=== PATIENT | male | born 1950 | race Caucasian/White ===

== ENCOUNTER 2017-01-01 07:07 | Emergency (ER) | payer MEDICARE, OTHER ==
[~2017-01-01] VITALS: Ht 160 cm; Wt 78.9 kg
[~2017-01-01 07:07] MED LIST: ASPI81TA3 PO; ATOR40TA68 PO; BISA5TAB6 PO; CARV6.2579 PO; FAMO20TA18 PO; HYDR-3498 PO; HYDR-902 PO; LANT3I SC; LEVO500T72 PO; LISI-313 PO; NOVO3I SC; RTPRO5 HHN; ZOLP5TAB PO
[2017-01-01 07:09] VITALS: Ht 160 cm; Wt 78.9 kg
--- NOTE | 2017-01-01 08:29 | RADRPT ---
PROCEDURE: XR Chest. CLINICAL INDICATION: Cough TECHNIQUE: PA and lateral views of the chest were obtained. COMPARISON: 07/23/2016 FINDINGS: Post CABG changes redemonstrated with sternotomy wires and mediastinal clips. There are atherosclero tic calcifications of the thoracic aorta. There is a small to moderate left pleural effusion with l eft basilar atelectasis, which has decreased. The right lung appears clear. No pleural effusion or pneumothorax is identified. The visualized osseous structures are intact. IMPRESSION: Small to moderate left pleural effusion with left basilar atelectasis, decreased since the prior exa m. RPTAT: VV .Gian Austin MD, MD Date Time Electronically viewed and signed by .Gian Austin MD, MD on 01/01/2017 08:29 .O/
[2017-01-01] MEDS ORDERED: BENZ100C70 PO (08:57)
[2017-01-01] MEDS ORDERED: PROM12.510 PO (08:59)
--- NOTE | 2017-01-01 09:06 | ERD ---
ER Documentation Chief Complaint Date/Time DATE: 01/01/17 TIME: 09:05 Chief Complaint cough x 1 week HPI This is a 66-year-old male with a history of diabetes type II on insulin, hypertension, hyperlipidemia, and STEMI in July 2016, pleural effusions presenting to the emergency department complaining of cough and sore throat for the past 2 weeks. Patient rates the sore throat mild in severity. Patient denies any fever, ear pain, chest pain or shortness of breath. Patient states that he has not tried any medications for this. ROS All systems reviewed and are negative except as per history of present illness. Medications Home Meds Active Scripts Famotidine* (Pepcid*) 20 Mg Tablet, 20 MG PO DAILY, #20 TAB Prov:WHIT ESPINOSA PA-C 01/01/17 Loratadine* (Claritin*) 10 Mg Tablet, 10 MG PO DAILY, #20 TAB Prov:WHIT ESPINOSA PA-C 01/01/17 Benzonatate* (Tessalon Perle*) 100 Mg Capsule, 100 MG PO Q8H Y for COUGH, #30 CAP Prov:WHIT ESPINOSA PA-C 01/01/17 Zolpidem Tartrate (Ambien José Miguel) 5 Mg Tablet, 5 MG PO QHS Y for INSOMNIA for 7 Days, TAB Prov:MARCIO CRAIG NP 07/24/16 Insulin Glargine* (Lantus*) 100 Unit/Ml Soln, 30 UNIT SC QHS for 30 Days Prov:MARCIO CRAIG NP 07/24/16 Insulin Aspart* (Novolog Insulin Pen*) 100 Unit/Ml Soln, 9 UNIT SC WITH MEALS for 30 Days Prov:MARCIO CRAIG NP 07/24/16 Insulin Aspart* (Novolog Insulin Pen*) 100 Unit/Ml Soln, 0 UNIT SC WITH MEALS BEDTIME for 30 Days Prov:MARCIO CRAIG NP 07/24/16 Hydrocodone Bit-Acetaminophen (Hydrocodone Bit-APAP) 5-325MG Tablet, 1 TAB PO Q6H Y for PAIN LEVEL 4-6 for 7 Days, TAB Prov:MARCIO CRAIG NP 07/24/16 Famotidine* (Famotidine*) 20 Mg Tablet, 20 MG PO Q12 for 7 Days, TAB Prov:MARCIO CRAIG NP 07/24/16 Bisacodyl* (Bisacodyl*) 5 Mg Tablet.dr, 5 MG PO DAILY Y for CONSTIPATION for 7 Days Prov:MARCIO CRAIG NP 07/24/16 Albuterol Sulfate (Albuterol Sulfate) 2.5 Mg/0.5 Ml Vial.neb, 2.5 MG HHN Q4H RESP THERAPY Y for SHORTNESS OF BREATH for 7 Days Prov:MARCIO CRAIG NP 07/24/16 Albuterol Sulfate (Albuterol Sulfate) 2.5 Mg/0.5 Ml Vial.neb, 2.5 MG HHN Q6HWA RESP THERAPY for 7 Days Prov:MARCIO CRAIG NP 07/24/16 Hydrocodone/Acetaminophen ([place] 10-325 Tablet) 1 Each Tablet, 1 EACH PO Q6H for PAIN, #30 TAB Prov:MARCIO CRAIG NP 07/23/16 Levofloxacin* (Levaquin*) 500 Mg Tablet, 500 MG PO DAILY for 7 Days, TAB Prov:MARCIO CRAIG NP 07/23/16 Lisinopril* (Lisinopril*) 5 Mg Tablet, 5 MG PO DAILY for 30 Days, TAB Prov:MARCIO CRAIG NP 07/23/16 Atorvastatin* (Atorvastatin*) 40 Mg Tablet, 40 MG PO HS for 30 Days, TAB Prov:MARCIO CRAIG NP 07/23/16 Aspirin (Aspirin) 81 Mg Chew, 81 MG PO DAILY for 30 Days, TAB Prov:MARCIO CRAIG NP 07/23/16 Carvedilol* (Carvedilol*) 6.25 Mg Tablet, 6.25 MG PO BID, #60 TAB 1 Refill Prov:RAJWINDER CHEW 03/13/16 Allergies Allergies: Coded Allergies: No Known Allergy (Unverified , 01/01/17) PMhx/Soc History of Surgery: Yes (heart surgery) Anesthesia Reaction: No Hx Neurological Disorder: No Hx Respiratory Disorders: Yes (chf, copd) Hx Cardiac Disorders: Yes ([place]) Hx Psychiatric Problems: No Hx Miscellaneous Medical Probl: Yes (see notes) Hx Alcohol Use: No (stopped 2 weekls ago) Hx Substance Use: No Hx Tobacco Use: Yes (stopped 2 weeks ago) Smoking Status: Never smoker Physical Exam Vitals Vital Signs Date Time Temp Pulse Resp B/P Pulse Ox O2 Delivery O2 Flow Rate FiO2 01/01/17 07:09 98.1 97 18 170/90 99 Physical Exam GENERAL: well-developed/well-nourished, in no apparent distress, non-toxic appearing HEAD: NC/AT, no swelling noted in frontal or maxillary areas EARS: bilateral tympanic membrane is intact without erythema or effusion NARES:congested THROAT: oropharynx erythematous without exudates, no tonsil enlargement, post nasal drip EYES: Conjunctiva normal NECK: Supple, no lymphadenopathy PULM: Decreased breath sounds in left upper lobe CV: Normal S1S2, RRR, good capillary refill GI: Soft, non-distended, normal bowel sounds, non-tender BACK: No midline tenderness, no masses EXT No clubbing, cyanosis, or edema NEURO: Alert and Orientated SKIN: Intact, normal turgor PSYCH: Normal mood and mentation Procedures/MDM This is a 66-year-old male with a history of diabetes type II on insulin, hypertension, hyperlipidemia, and STEMI in July 2016, pleural effusions presenting to the emergency department complaining of cough and sore throat for the past 2 weeks. This is likely due to pleural effusion vs viral upper respiratory infection vs post-nasal drip vs GERD. Other differentials I have considered pneumonia, pneumothorax, pulmonary embolism, CHF vs other acute cardiopulmonary conditions. On examination, patient appears well he is not tachycardic, his pulse ox is within normal limits and he appears well with no respiratory distress. Patient was recently hospitalized for an STEMI in July 2016 and was found to have pleural effusions on x-rays. CXR that was done today stated small to moderate left pleural effusion with left basilar atelectasis, decreased since the prior exam. I discussed this with my supervising physician who states that he is suitable for discharge to follow-up with his primary care physician. Prescription for Tessalon Perles, Claritin and Pepcid was provided. I discussed with him to follow-up with his primary care physician. Discussed return to the ER for any worsening signs or symptoms. He understands and agrees with this plan Departure Diagnosis: Primary Impression: Cough Additional Impression: Pleural effusion, left Condition: Stable Patient Instructions: Pleural Effusion, Cough, Chronic, Uncertain Cause, (Adult ) [facility]errals[facility] Usted se murray hecho un examen mdico de control que le indica que no est en pratik condicin que requiera tratamiento urgente en el Departamento de Emergencia. Un estudio ms profundo y el tratamiento de hurst condicin pueden esperar sin ningn riesgo hasta que usted sea atendida/o en el consultorio de hurst mdico o pratik cl nery. Es responsabilidad suya arreglar pratik ger para el seguimiento del abram. MANEJO DE CONDICIONES NO URGENTES EN EL FUTURO 1) Si usted tiene un mdico de atencin primaria: Usted debera llamar a hurst mdico de atencin primaria antes de venir al departamento de emergencia. Despus de las horas de consultorio, hurst doctor o hurst asociado/a est disponible por telfono. El mdico o enfermero de doris en el servicio telefnico puede asesorarle por ro medio para atender el problema, o abram contrario se puede programar pratik ger. 2) Si usted no tiene un mdico de atencin primaria: Llame al mdico o clnica de referencia que aparece abajo rebecca las horas de consultorio para hacer pratik ger para que le vean. CLINICAS: [facility] [phone] [facility] [phone] [facility] [phone] [facility]. [facility] [phone] [place] [id number] [phone] [facility] [phone] [address] Additional Instructions: Visite a hurst mdico maana para un EXAMEN.Regrese a estas instalaciones si no se mejora shannon esperbamos o shannon le dijimos. [place] toda la medicina shwetha y shannon se le indic. Regrese a estas instalaciones si no se mejora shannon esperbamos o shannon le dijimos. WHIT ESPINOSA PA-C Jan 01, 2017 09:06
[2017-01-01] MEDS ORDERED: FAMO-18 PO (09:07)
[2017-01-01] MEDS ORDERED: LORA-186 PO (09:07)
[2017-01-01 09:48] VITALS: BP 143/67; PULSE 74; RESP 19; TEMP 98.5
== END 2017-01-01 09:49 | disposition home or self-care (01) ==
LOC: FTE 07:07
DX: R05 Cough (principal); J90 Pleural effusion, not elsewhere classified; I50.9 Heart failure, unspecified; J44.9 Chronic obstructive pulmonary disease, unspecified; E11.9 Type 2 diabetes mellitus without complications; Z79.4 Long term (current) use of insulin; Z79.82 Long term (current) use of aspirin; Z87.891 Personal history of nicotine dependence
CPT/HCPCS: 71020

== ENCOUNTER 2017-04-28 11:36 | Inpatient (IN) | payer MEDICARE, OTHER ==
[~2017-04-28] VITALS: Ht 177.8 cm; Wt 88.0 kg
[~2017-04-28 11:36] MED LIST changes: +BENZ100C70 PO; +FAMO-96 PO; +LORA-186 PO
[2017-04-28 12:47] LABS: BASOPHIL # 0.1 10^3/ul (0.0-0.1); BASOPHILS % 0.6 % (0.0-2.0); EOSINOPHILS # 1.1 10^3/ul (0.0-0.5); EOSINOPHILS % 7.9 % (0.0-7.0); HEMATOCRIT 45.7 % (42.0-52.0); HEMOGLOBIN 15.4 g/dl (14.0-18.0); LYMPHOCYTES # 1.5 10^3/ul (0.8-2.9); LYMPHOCYTES % 11.2 % (15.0-51.0); MEAN CORPUSCULAR HGB CONC 33.7 g/dl (32.0-37.0); MEAN CORPUSCULAR VOLUME 86.1 fl (82.0-101.0); MEAN PLATELET VOLUME 10.1 fl (7.4-10.4); MONOCYTE # 0.8 10^3/ul (0.3-0.9); MONOCYTES % 5.6 % (0.0-11.0); NEUTROPHILS % 74.1 % (39.0-77.0); PLATELET COUNT 220 10^3/UL (140-415); RED BLOOD COUNT 5.31 10^6/ul (4.70-6.10); RED CELL DISTRIBUTION WIDTH 13.2 % (11.5-14.5); WHITE BLOOD COUNT 13.6 10^3/ul (4.8-10.8)
[2017-04-28] MEDS ORDERED: ACETAMINOPHEN 325 MG TAB PO PRN ×2 (13:00→14:30)
[2017-04-28] MEDS ORDERED: ONDANSETRON 4 MG INJ IV PRN ×2 (13:00→14:30)
--- NOTE | 2017-04-28 13:06 | ERA ---
ER Documentation Chief Complaint Date/Time DATE: 04/28/17 TIME: 13:02 Chief Complaint l. sided facial & body numbness x3 days, positive lue pronator drift HPI Patient is a 67-year-old male with coronary disease, hypertension, and diabetes who presents with left-sided weakness. He said that his left face feels like it is asleep in his left arm and left leg are weak. He has dizziness. He said the symptoms started on Wednesday and have been constant. He has had no treatment as of yet. Upon review of old medical records this is the patient's fourth visit to the ER since 2012. He does not currently have a primary doctor. ROS All systems reviewed and are negative except as per history of present illness. Medications Home Meds Active Scripts Famotidine* (Pepcid*) 20 Mg Tablet, 20 MG PO DAILY, #20 TAB Prov:WHIT ESPINOSA PA-C 01/01/17 Loratadine* (Claritin*) 10 Mg Tablet, 10 MG PO DAILY, #20 TAB Prov:WHIT ESPINOSA PA-C 01/01/17 Benzonatate* (Tessalon Perle*) 100 Mg Capsule, 100 MG PO Q8H Y for COUGH, #30 CAP Prov:WHIT ESPINOSA PA-C 01/01/17 Zolpidem Tartrate (Ambien José Miguel) 5 Mg Tablet, 5 MG PO QHS Y for INSOMNIA for 7 Days, TAB Prov:MARCIO CRAIG NP 07/24/16 Insulin Glargine* (Lantus*) 100 Unit/Ml Soln, 30 UNIT SC QHS for 30 Days Prov:MARCIO CRAIG NP 07/24/16 Insulin Aspart* (Novolog Insulin Pen*) 100 Unit/Ml Soln, 9 UNIT SC WITH MEALS for 30 Days Prov:MARCIO CRAIG NP 07/24/16 Insulin Aspart* (Novolog Insulin Pen*) 100 Unit/Ml Soln, 0 UNIT SC WITH MEALS BEDTIME for 30 Days Prov:MARCIO CRAIG NP 07/24/16 Hydrocodone Bit-Acetaminophen (Hydrocodone Bit-APAP) 5-325MG Tablet, 1 TAB PO Q6H Y for PAIN LEVEL 4-6 for 7 Days, TAB Prov:MARCIO CRAIG NP 07/24/16 Famotidine* (Famotidine*) 20 Mg Tablet, 20 MG PO Q12 for 7 Days, TAB Prov:MARCIO CRAIG NP 07/24/16 Bisacodyl* (Bisacodyl*) 5 Mg Tablet.dr, 5 MG PO DAILY Y for CONSTIPATION for 7 Days Prov:MARCIO CRAIG NP 07/24/16 Albuterol Sulfate (Albuterol Sulfate) 2.5 Mg/0.5 Ml Vial.neb, 2.5 MG HHN Q4H RESP THERAPY Y for SHORTNESS OF BREATH for 7 Days Prov:MARCIO CRAIG NP 07/24/16 Albuterol Sulfate (Albuterol Sulfate) 2.5 Mg/0.5 Ml Vial.neb, 2.5 MG HHN Q6HWA RESP THERAPY for 7 Days Prov:MARCIO CRAIG NP 07/24/16 Hydrocodone/Acetaminophen ([place] 10-325 Tablet) 1 Each Tablet, 1 EACH PO Q6H for PAIN, #30 TAB Prov:MARCIO CRAIG NP 07/23/16 Levofloxacin* (Levaquin*) 500 Mg Tablet, 500 MG PO DAILY for 7 Days, TAB Prov:MARCIO CRAIG NP 07/23/16 Lisinopril* (Lisinopril*) 5 Mg Tablet, 5 MG PO DAILY for 30 Days, TAB Prov:MARCIO CRAIG NP 07/23/16 Atorvastatin* (Atorvastatin*) 40 Mg Tablet, 40 MG PO HS for 30 Days, TAB Prov:MARCIO CRAIG NP 07/23/16 Aspirin (Aspirin) 81 Mg Chew, 81 MG PO DAILY for 30 Days, TAB Prov:MARCIO CRAIG NP 07/23/16 Carvedilol* (Carvedilol*) 6.25 Mg Tablet, 6.25 MG PO BID, #60 TAB 1 Refill Prov:RAJWINDER CHEW 03/13/16 Allergies Allergies: Coded Allergies: No Known Allergy (Unverified , 01/01/17) PMhx/Soc History of Surgery: Yes (heart surgery) Anesthesia Reaction: No Hx Neurological Disorder: No Hx Respiratory Disorders: Yes (chf, copd) Hx Cardiac Disorders: Yes ([place]) Hx Psychiatric Problems: No Hx Miscellaneous Medical Probl: Yes (see notes) Hx Alcohol Use: No (stopped 2 weekls ago) Hx Substance Use: No Hx Tobacco Use: Yes (stopped 2 weeks ago) FmHx Family History: diabetes Physical Exam Vitals Vital Signs Date Time Temp Pulse Resp B/P Pulse Ox O2 Delivery O2 Flow Rate FiO2 04/28/17 11:37 97.7 80 20 142/63 97 Physical Exam Const: No acute distress Head: Atraumatic Eyes: Normal Conjunctiva ENT: Normal External Ears, Nose and Mouth. Neck: Full range of motion..~ No meningismus. Resp: Clear to auscultation bilaterally Cardio: Regular rate and rhythm, no murmurs Abd: Soft, non tender, non distended. Normal bowel sounds Skin: No petechiae or rashes Back: No midline or flank tenderness Ext: No cyanosis, or edema Neur: Awake and alert, left-sided facial numbness with palpation, patient has a significant pronator drift on the left upper extremity, 4-5 strength in the left lower extremity compared with 5 out of 5 strength in the right lower extremity Psych: Normal Mood and Affect Result Diagram: 04/28/17 1220 Results 24 hrs Laboratory Tests Test 04/28/17 12:20 04/28/17 12:28 White Blood Count 13.610^3/ul Red Blood Count 5.3110^6/ul Hemoglobin 15.4g/dl Hematocrit 45.7% Mean Corpuscular Volume 86.1fl Mean Corpuscular Hemoglobin 29.0pg Mean Corpuscular Hemoglobin Concent 33.7g/dl Red Cell Distribution Width 13.2% Platelet Count 00350^3/UL Mean Platelet Volume 10.1fl Neutrophils % 74.1% Lymphocytes % 11.2% Monocytes % 5.6% Eosinophils % 7.9% Basophils % 0.6% Nucleated Red Blood Cells % 0.0/100WBC Neutrophils # (Manual) 1010^3/ul Lymphocytes # 1.510^3/ul Monocytes # 0.810^3/ul Eosinophils # 1.110^3/ul Basophils # 0.110^3/ul Nucleated Red Blood Cells # 0.010^3/ul Bedside Glucose 299mg/dL Current Medications Medications (Trade) Dose Ordered Sig/Lissette Route PRN Reason Start Time Stop Time Status Last Admin Dose Admin Ondansetron HCl (Zofran Inj) 4 mg ER BRIDGE PRN IV NAUSEA AND/OR VOMITING 04/28/17 13:00 04/29/17 12:59 Acetaminophen (Tylenol Tab) 650 mg ER BRIDGE PRN PO MILD PAIN/FEVER 04/28/17 13:00 04/29/17 12:59 Procedures/MDM EKG read by me: Rate/Rhythm: Regular rate and rhythm at a normal rate Intervals: Normal Impression: Flipped T waves in the lateral leads Chest X-ray 1V Interpreted by me: Soft Tissue: No acute abnormalities Bones: No acute abnormalities Mediastinum/Cardiac Silhouette/Lungs: Previous sternotomy with cardiomegaly , no pneumonia or pneumothorax CT scan of the brain is pending at this time. Patient is a 67-year-old male presents with what appears to be an acute stroke. The stroke would have started on Wednesday however and therefore he is outside the window for TPA or mechanical treatment of a clot. The patient had a bedside swallow evaluation and NIH stroke scale performed. I am awaiting the results of the CT scan of the brain. The patient will need aspirin if the CT scan of the brain is negative for bleed. I spoke with Dr. Thrasher from the panel team for admission to a telemetry bed as the patient does not currently have a primary doctor. Departure Diagnosis: Primary Impression: Stroke Qualified Code: I63.9 - Cerebrovascular accident (CVA), unspecified mechanism Additional Impression: Numbness Condition: AMIRAH Ash MD Apr 28, 2017 13:03
[2017-04-28 13:08] LABS: INR 0.93; PARTIAL THROMBOPLASTIN TIME 24.2 Sec (25.0-35.0); PROTIME 12.5 Sec (12.2-14.2)
[2017-04-28 13:10] LABS: CALCIUM 9.1 mg/dl (8.4-10.2); CREATININE 1.03 mg/dl (0.61-1.24); POTASSIUM 4.1 mmol/L (3.5-5.1)
[2017-04-28 13:21] LABS: TROPONIN-I 0.017 ng/ml (0.00-0.12)
--- NOTE | 2017-04-28 13:32 | RADRPT ---
PROCEDURE: XR Chest. CLINICAL INDICATION: Shortness of breath TECHNIQUE: A single AP view of the chest was obtained. COMPARISON: Chest x-ray dated 01/01/2017 FINDINGS: Lung volumes are low with compressive changes and crowding of the central pulmonary vascular marking s with bibasilar atelectasis . No focal airspace opacity, pleural effusion or pneumothorax is seen. The cardiomediastinal silhouette is mildly enlarged. Calcifications are seen within the aortic arc h. There are post cardiac surgery changes with sternotomy wires. The osseous structures are unremar kable. IMPRESSION: 1. Low lung volumes with compressive changes and bibasilar atelectasis. Otherwise, no significant i nterval change. 2. Mild cardiomegaly and aortic atherosclerosis. RPTAT: HH .Linh Umana MD, Date Time Electronically viewed and signed by .Linh Umaan MD, on 04/28/2017 13:32 .G/
[2017-04-28] MEDS ORDERED: NACL 0.9% 3 ML SYG IV SCH (14:30)
[2017-04-28] MEDS ORDERED: METOCLOPRAMIDE 10 MG INJ IV PRN (14:30)
[2017-04-28] MEDS ORDERED: BISACODYL 10 MG SUPP PR PRN (14:30)
[2017-04-28] MEDS ORDERED: ALBUTEROL 0.5% (NEB) 2.5 MG/0.5 ML AMP HHN PRN (14:30)
[2017-04-28] MEDS ORDERED: ONDANSETRON 4 MG TAB PO PRN (14:30)
[2017-04-28] MEDS ORDERED: HYDROCODONE/APAP (5/325) TAB PO PRN ×2 (14:30)
[2017-04-28] MEDS ORDERED: BISACODYL (EC) 5 MG TAB PO PRN ×2 (14:30)
[2017-04-28] MEDS ORDERED: DOCUSATE SODIUM 100 MG CAP PO PRN (14:30)
[2017-04-28] MEDS ORDERED: MAGNESIUM HYDROXIDE 30ML CUP PO PRN (14:30)
--- NOTE | 2017-04-28 14:38 | RADRPT ---
PROCEDURE: CT brain without contrast CLINICAL INDICATION: Left facial numbness TECHNIQUE: CT of the brain without contrast performed on a multidetector CT scanner, with multiplan ar reformats. One or more of the following dose reduction techniques were used: Automated exposure control, adjustment in mA and / or kV according to patient size, use of iterative reconstructive álvaro hnique. CTDIvol = 43 mGy; DLP = 720 mGy-cm. COMPARISON: None available FINDINGS: No acute intracranial hemorrhage is identified. No extra-axial fluid collection is seen. There is no mass effect. No midline shift is identified. The ventricles and sulci are mildly enlarged compatible with generalized volume loss. There is a lacunar infarct in the right thalamus which is age indeterminate, possibly recent. There are mild to moderate areas of hypodensity in the periventricular - deep white matter which are nons pecific but suggestive of chronic small vessel ischemic changes. Yuan-white differentiation is pres erved. Atherosclerotic calcifications of the proximal intracranial arteries are noted. Calvarium and skull base are intact. Right sphenoid sinus secretions, partial bilateral ethmoid air cell opacification are noted. IMPRESSION: 1. Age indeterminate, possibly recent right thalamic lacunar infarct. Further evaluation with MRI is advised. 2. No acute intracranial hemorrhage. 3. Mild generalized volume loss, with mild to moderate chronic small vessel ischemic changes. RPTAT: VV .Gian Austin MD, MD Date Time Electronically viewed and signed by .Gian Austin MD, MD on 04/28/2017 14:38 .O/
--- NOTE | 2017-04-28 14:46 | EN ---
Date/Time of Note Date/Time of Note DATE: 04/28/17 TIME: 14:44 ER Progress Note [place] [id number] Radiology Main Line: [phone] DIAGNOSTIC IMAGING REPORT Patient: TOM RICK : 1950 Age: 67 Sex: M MR #: [id number] DOS: 04/28/17 1201 Ordering MD: AMIRAH BLEDSOE MD Location: E/R Room/Bed: PROCEDURE: CT brain without contrast CLINICAL INDICATION: Left facial numbness TECHNIQUE: CT of the brain without contrast performed on a multidetector CT scanner, with multiplanar reformats. One or more of the following dose reduction techniques were used: Automated exposure control, adjustment in mA and / or kV according to patient size, use of iterative reconstructive technique. CTDIvol = 43 mGy; DLP = 720 mGy-cm. COMPARISON: None available FINDINGS: No acute intracranial hemorrhage is identified. No extra-axial fluid collection is seen. There is no mass effect. No midline shift is identified. The ventricles and sulci are mildly enlarged compatible with generalized volume loss. There is a lacunar infarct in the right thalamus which is age indeterminate, possibly recent. There are mild to moderate areas of hypodensity in the periventricular - deep white matter which are nonspecific but suggestive of chronic small vessel ischemic changes. Yuan-white differentiation is preserved. Atherosclerotic calcifications of the proximal intracranial arteries are noted. Calvarium and skull base are intact. Right sphenoid sinus secretions, partial bilateral ethmoid air cell opacification are noted. IMPRESSION: 1. Age indeterminate, possibly recent right thalamic lacunar infarct. Further evaluation with MRI is advised. 2. No acute intracranial hemorrhage. 3. Mild generalized volume loss, with mild to moderate chronic small vessel ischemic changes. RPTAT: VV .Gian Austin MD, Date Time Electronically viewed and signed by .Gian Austin MD, on 04/28/2017 14:38 .O/ CC: AMIRAH BLEDSOE MD I was asked by Dr Bledsoe to f/u on the brain CT, which is unremarkable. He is treated with aspirin 325 mg p.o. for subacute stroke JOHN BULLOCK MD Apr 28, 2017 14:46
[2017-04-28] MEDS ORDERED: DEXTROSE 50% 50 ML SYRINGE IV PRN ×2 (15:00)
[2017-04-28] MEDS ORDERED: GLUCOSE GEL 15 GRAM TUBE PO PRN ×2 (15:00)
[2017-04-28] MEDS ORDERED: GLUCAGON 1 MG INJ IM PRN (15:00)
[2017-04-28] MEDS ORDERED: GLUCOSE GEL 15 GRAM TUBE BUCCAL PRN (15:00)
[2017-04-28] MEDS ORDERED: ASPIRIN 325 MG TAB PO ONE (15:00)
--- NOTE | 2017-04-28 15:58 | RADRPT ---
PROCEDURE: US Carotids. CLINICAL INDICATION: bruit , CVA TECHNIQUE: Multiple sonographic of the carotid bifurcation region and vertebral arteries were obta ined utilizing tse scale, duplex and color-flow imaging. The images were reviewed on a PACS worksta tion. COMPARISON: No prior studies are available for comparison. FINDINGS: Evaluation of the right carotid bifurcation region reveals mild calcific atherosclerotic disease. Th ere is a 42% stenosis in the right common carotid artery. Evaluation of the left carotid bifurcation region reveals no significant calcific atherosclerotic di sease. There is antegrade flow within the vertebral arteries bilaterally. RIGHT CAROTID MEASUREMENTS: Common Carotid Faaxnq41.3 (cm/sec) Internal Carotid Artery - gisbggnn60.9 (cm/sec) Internal Carotid Artery - mid54.8 (cm/sec) Internal Carotid Artery - xkhldy70.1 (cm/sec) Internal Carotid/Common Carotid1.52 LEFT CAROTID MEASUREMENTS: Common Carotid Rufapa835.9 (cm/sec) Internal Carotid Artery - jxzcphgu20.9 (cm/sec) Internal Carotid Artery - mid58.7 (cm/sec) Internal Carotid Artery - hyjypt23.4 (cm/sec) Internal Carotid/Common Carotid0.93 RPTAT: AA IMPRESSION: No evidence for hemodynamically significant stenosis in the bilateral internal carotid arteries - va lidated velocity measurements with angiographic measurements, velocity criteria are extrapolated fro m diameter data as defined by the Society of Radiologists in Ultrasound Consensus Conference Radiolo gy 2003; 229;340-346. This study does indirectly reference the measurement of the distal ICA diamet er as the denominator for stenosis measurement. Normal antegrade flow in the vertebral arteries bilaterally. Mild calcific plaque in the right common carotid artery with a 42% stenosis. .Lowell George MD, Date Time Electronically viewed and signed by .Lowell George MD, MD on 04/28/2017 15:57 .S/
[2017-04-28 16:20] VITALS: TEMP 97
--- NOTE | 2017-04-28 17:15 | HP ---
Date/Time of Note Date/Time of Note DATE: 04/28/17 TIME: 16:42 Assessment/Plan VTE Prophylaxis VTE Prophylaxis Intervention: SCD's Assessment/Plan Assessment/Plan 67 yo M with pmhx HTN, DM2, HL presents with 4 days of LUE tingling and clumsiness, CT imaging suggestive of subacute R lacunar infarct, which would be consistent with patient's clinical presentation. This infarct was most likely the result of small vessel disease from the patients vascular risk factors including HTN/DM/HL PLAN MRI brain to confirm CVA MRA brain/neck to aid in localization/risk factor eval carotid dopplers already negative TTE, tele to eval for AFib, valvulopathy, PFO FLP PT/OT/ST cont home BP meds, cont statin, cont insulin CDE cs for DM teaching check orthostatics given c/o lightheadedness from standing, possibly autonomic neuropathy from DM2 given pt with stroke while already on asa, will uptitrate to plavix (alt antiplatelet agent) though the evidence on this practice is evolving HPI/ROS Admit Date/Time Admit Date/Time Hx of Present Illness Vietnamese language line used to facilitate communication CC: "My left side feels like it's wrapped around a tree" HPI 67 yo M with pmhx DM2, HTN, HL presents with LUE tingling and weakness which started on Wednesday (4 days prior to admission). Pt initially thought that his arm had "fallen asleep" but the tingling in his arm did not fully improve. Since then he's still been having tingling and decreased sensation as well as clumsiness of his L arm. Pt also reports he has at times been feeling "dizzy" when he changes position from laying to sitting and standing. No chest pain or SOB. 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 +decreased sensation throughout LUE. 5/5 strength RUE no mrg lungs clear abd soft no edema 5/5 strength bl LEs labs with a1c 9s CT head with subacute CVA: right lacunar area Labs Result Diagram: 04/28/17 1220 04/28/17 1220 Medications Medications Current Medications Ondansetron HCl (Zofran Tab) 4 mg Q6H PRN PO NAUSEA AND/OR VOMITING; Start at 14:30 Ondansetron HCl (Zofran Inj) 4 mg Q6H PRN IV NAUSEA AND/OR VOMITING; Start at 14:30 Metoclopramide HCl (Reglan) 10 mg Q6H PRN IV NAUSEA AND/OR VOMITING; Start at 14:30 Acetaminophen (Tylenol Tab) 650 mg Q6H PRN PO PAIN LEVEL 1-3 OR FEVER; Start at 14:30 Acetaminophen/ Hydrocodone Bitart ([place] (5/325)) 1 tab Q6H PRN PO PAIN LEVEL 4 -6; Start 04/28/17 at 14:30 Docusate Sodium (Colace) 100 mg Q12H PRN PO CONSTIPATION; Start 04/28/17 at 14: 30 Magnesium Hydroxide (Milk Of Mag) 30 ml DAILY PRN PO CONSTIPATION; Start at 14:30 Bisacodyl (Dulcolax) 5 mg DAILY PRN PO CONSTIPATION; Start 04/28/17 at 14:30 Bisacodyl (Dulcolax Supp) 10 mg DAILY PRN [place] CONSTIPATION; Start 04/28/17 at 14 :30 Enoxaparin Sodium (Lovenox) 40 mg DAILY SC ; Start 04/29/17 at 09:00 Aspirin (Aspirin) 81 mg DAILY PO ; Start 04/29/17 at 09:00 Atorvastatin Calcium (Lipitor) 40 mg HS PO ; Start 04/28/17 at 21:00 Carvedilol (Coreg) 6.25 mg BID PO ; Start 04/28/17 at 21:00 Famotidine (Pepcid) 20 mg DAILY PO ; Start 04/29/17 at 09:00 Insulin Glargine (Lantus) 30 unit QHS SC ; Start 04/28/17 at 21:00 Lisinopril (Zestril) 5 mg DAILY PO ; Start 04/29/17 at 09:00 Loratadine (Claritin) 10 mg DAILY PO ; Start 04/29/17 at 09:00 Diagnostic Test (Pha) (Accu-Chek) 1 ea 02 XX ; Start 04/29/17 at 02:00 Miscellaneous Information 1 ea NOTE XX ; Start 04/28/17 at 15:00 Glucose (Glutose) 15 gm Q15M PRN PO DECREASED GLUCOSE; Start 04/28/17 at 15:00 Glucose (Glutose) 22.5 gm Q15M PRN PO DECREASED GLUCOSE; Start 04/28/17 at 15: 00 Dextrose (D50w Syringe) 25 ml Q15M PRN IV DECREASED GLUCOSE; Start 04/28/17 at 15:00 Dextrose (D50w Syringe) 50 ml Q15M PRN IV DECREASED GLUCOSE; Start 04/28/17 at 15:00 Glucagon (Glucagen) 1 mg Q15M PRN IM DECREASED GLUCOSE; Start 04/28/17 at 15:00 Glucose (Glutose) 15 gm Q15M PRN BUCCAL DECREASED GLUCOSE; Start 04/28/17 at 15 :00 MICKEY ALVA MD Apr 28, 2017 16:55
[2017-04-28 17:29] VITALS: Ht 177.8 cm; Wt 88.0 kg
[2017-04-28] MEDS: INSULIN ASPART [NOVOLOG] 3 ML PEN SC SCH ×3 (17:35→21:00)
[2017-04-28 17:49] VITALS: BP 164/82; PULSE 63; RESP 18
[2017-04-28] MEDS ORDERED: INSULIN ASPART [NOVOLOG] 3 ML PEN SC SCH ×2 (18:00)
[2017-04-28 20:00] VITALS: BP 164/79; PULSE 53; PULSE 56; RESP 16
[2017-04-28] MEDS: ALBUTEROL 0.5% (NEB) 2.5 MG/0.5 ML AMP HHN SCH (20:00)
[2017-04-28] MEDS ORDERED: INSULIN GLARGINE [LANtus] 3 ML PEN SC SCH (21:00)
[2017-04-28] MEDS ORDERED: ATORVASTATIN 40 MG TAB PO SCH (21:00)
[2017-04-28 22:13] VITALS: PULSE 61
[2017-04-28 23:39] VITALS: BP 125/78; RESP 18
[2017-04-29] VITALS (12 sets, daily range): BP systolic 129–137; BP diastolic 67–74; PULSE 56–66; RESP 17–19
[2017-04-29] MEDS: ACCU-CHEK XX SCH (02:00)
[2017-04-29] MEDS: ALBUTEROL 0.5% (NEB) 2.5 MG/0.5 ML AMP HHN SCH ×3 (08:08→21:12)
[2017-04-29] MEDS: CLOPIDOGREL 75 MG TAB PO SCH (08:22)
[2017-04-29] MEDS: LORATADINE 10 MG TAB PO SCH (08:22)
[2017-04-29] MEDS: FAMOTIDINE 20 MG TAB PO SCH (08:22)
[2017-04-29] MEDS: LISINOPRIL 5 MG TAB PO SCH (08:22)
[2017-04-29] MEDS: ENOXAPARIN 40 MG/0.4 ML SYG SC SCH (08:24)
[2017-04-29] MEDS: INSULIN ASPART [NOVOLOG] 3 ML PEN SC SCH ×7 (08:25→20:17)
[2017-04-29] MEDS ORDERED: ASPIRIN 81 MG TAB PO SCH (09:00)
--- NOTE | 2017-04-29 12:43 | PN ---
Date/Time of Note Date/Time of Note DATE: 04/29/17 TIME: 12:39 Assessment/Plan VTE Prophylaxis VTE Prophylaxis Intervention: SCD's Lines/Catheters IV Catheter Type (from Nrsg): Peripheral IV Urinary Cath still in place: No Assessment/Plan Assessment/Plan 67 yo M with pmhx HTN, DM2, HL presented with 4 days of LUE tingling and clumsiness, CT imaging suggestive of subacute R lacunar infarct, which would be consistent with patient's clinical presentation. This infarct was most likely the result of small vessel disease from the patients vascular risk factors including HTN/DM/HL PLAN MRI brain to confirm CVA MRA brain/neck to aid in localization/risk factor eval carotid dopplers already negative TTE, tele to eval for AFib, valvulopathy, PFO FLP PT/OT/ST ongoing cont home BP meds, cont statin, cont insulin CDE cs for DM teaching check orthostatics given c/o lightheadedness from standing, possibly autonomic neuropathy from DM2 given pt with stroke while already on asa, will uptitrated to plavix (alt antiplatelet agent) though the evidence on this practice is evolving ARU cs Subjective 24 Hr Interval Summary Free Text/Dictation L arm maybe has some more sensation Exam/Review of Systems Vital Signs Vitals Vital Signs Date Time Temp Pulse Resp B/P Pulse Ox O2 Delivery O2 Flow Rate FiO2 04/29/17 11:44 98.5 98 18 131/74 99 04/29/17 08:13 21 04/28/17 20:00 Room Air Exam nad, laying in bed +mild L facial droop no mrg lungs clear 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, 5/5 triceps/biceps/delts no edema Results Result Diagram: 04/28/17 1220 04/28/17 1220 Results 24 hrs Laboratory Tests Test 04/28/17 17:56 04/28/17 22:49 04/29/17 02:29 04/29/17 07:43 Bedside Glucose 159 94 120 164 Test 04/29/17 11:57 Bedside Glucose 210 Medications Medications Current Medications Ondansetron HCl (Zofran Tab) 4 mg Q6H PRN PO NAUSEA AND/OR VOMITING; Start at 14:30 Ondansetron HCl (Zofran Inj) 4 mg Q6H PRN IV NAUSEA AND/OR VOMITING; Start at 14:30 Metoclopramide HCl (Reglan) 10 mg Q6H PRN IV NAUSEA AND/OR VOMITING; Start at 14:30 Acetaminophen (Tylenol Tab) 650 mg Q6H PRN PO PAIN LEVEL 1-3 OR FEVER; Start at 14:30 Acetaminophen/ Hydrocodone Bitart ([place] (5/325)) 1 tab Q6H PRN PO PAIN LEVEL 4 -6; Start 04/28/17 at 14:30 Docusate Sodium (Colace) 100 mg Q12H PRN PO CONSTIPATION; Start 04/28/17 at 14: 30 Magnesium Hydroxide (Milk Of Mag) 30 ml DAILY PRN PO CONSTIPATION; Start at 14:30 Bisacodyl (Dulcolax) 5 mg DAILY PRN PO CONSTIPATION; Start 04/28/17 at 14:30 Bisacodyl (Dulcolax Supp) 10 mg DAILY PRN [place] CONSTIPATION; Start 04/28/17 at 14 :30 Enoxaparin Sodium (Lovenox) 40 mg DAILY SC Last administered on 04/29/17 08:24 ; Admin Dose 40 MG; Start 04/29/17 at 09:00 Atorvastatin Calcium (Lipitor) 40 mg HS PO Last administered on 04/28/17 23:56 ; Admin Dose 40 MG; Start 04/28/17 at 21:00 Carvedilol (Coreg) 6.25 mg BID PO Last administered on 04/29/17 08:22; Admin Dose 6.25 MG; Start 04/28/17 at 21:00 Famotidine (Pepcid) 20 mg DAILY PO Last administered on 04/29/17 08:22; Admin Dose 20 MG; Start 04/29/17 at 09:00 Insulin Glargine (Lantus) 30 unit QHS SC ; Start 04/28/17 at 21:00 Lisinopril (Zestril) 5 mg DAILY PO Last administered on 04/29/17 08:22; Admin Dose 5 MG; Start 04/29/17 at 09:00 Loratadine (Claritin) 10 mg DAILY PO Last administered on 04/29/17 08:22; Admin Dose 10 MG; Start 04/29/17 at 09:00 Diagnostic Test (Pha) (Accu-Chek) 1 ea 02 XX ; Start 04/29/17 at 02:00 Miscellaneous Information 1 ea NOTE XX ; Start 04/28/17 at 15:00 Glucose (Glutose) 15 gm Q15M PRN PO DECREASED GLUCOSE; Start 04/28/17 at 15:00 Glucose (Glutose) 22.5 gm Q15M PRN PO DECREASED GLUCOSE; Start 04/28/17 at 15: 00 Dextrose (D50w Syringe) 25 ml Q15M PRN IV DECREASED GLUCOSE; Start 04/28/17 at 15:00 Dextrose (D50w Syringe) 50 ml Q15M PRN IV DECREASED GLUCOSE; Start 04/28/17 at 15:00 Glucagon (Glucagen) 1 mg Q15M PRN IM DECREASED GLUCOSE; Start 04/28/17 at 15:00 Glucose (Glutose) 15 gm Q15M PRN BUCCAL DECREASED GLUCOSE; Start 04/28/17 at 15 :00 Clopidogrel Bisulfate (plaVIX) 75 mg DAILY PO Last administered on 04/29/17t 08 :22; Admin Dose 75 MG; Start 04/29/17 at 09:00 MICKEY ALVA MD Apr 29, 2017 12:43
--- NOTE | 2017-04-29 12:45 | RADRPT ---
Echocardiogram Report Patient Name: TOM RICK Gender: Male Date: 1950 Study Date: 29-Apr-2017 Rn Outpatient Surgery: IVANIA Maddox[facility] Location: [id number] Ref. Physician: MICKEY ALVA Quality: Adequate Procedures: Transthoracic echocardiogram with complete 2D, M-Mode, and doppler examination. Indications: stroke. 2D/M Mode Doppler Measurement Value Normal Ranges Measurement Value Normal Ranges LVIDd 2D 4.8 3.5 - 5.6 cm BEV Vmax 2.1 cm2 LVIDs 2D 3.8 2.1 - 4.1 cm AV Peak Jonas 1.7 m/sec FS 2D 20.5 % AV Peak PG 12.0 mmHg LVPWd 2D 1.3 0.6 - 1.1 cm LVOT Peak Jonas 1.0 m/sec IVSd 2D 0.9 0.6 - 1.1 cm LVOT Peak PG 4.0 mmHg IVS/LVPW 2D 0.7 MV E Peak Jonas 0.7 m/sec AoR Diam 2D 3.5 2.0 - 3.7 cm MV A Peak Jonas 1.1 m/sec LA/Ao 2D 1 0 - 1 MV E/A 0.7 EDV 2D 113.0 cm3 MV Decel Time 155 msec ESV 2D 57.1 cm3 MV E/A 0.7 LA Dimen 2D 3.5 2.3 - 4.0 cm TR Peak Jonas 1.1 m/sec LVOT Diam 2.2 cm TR Peak PG 5.0 mmHg LVOT Area 3.8 cm2 RVSP 15.0 mmHg Findings Left Ventricle: Normal left ventricular cavity size. Mild concentric left ventricular hypertrophy. Moderate left ventricular systolic dysfunction. Ejection fraction is visually estimated at 35 %. Tissue Doppler/Mitral Doppler indices are consistent with impaired relaxation (Stage I diastolic dysfunction). Resting Segmental Wall Motion Analysis: Akinesis and thinning of the entire septum, anterior wall, and apex consistent with old LAD territory infarct. Right Ventricle: Normal right ventricular size. Normal right ventricular systolic function. Left Atrium: There is mild enlargement of left atrium. Right Atrium: The right atrium is normal in size. Mitral Valve: Mitral valve leaflets appear mildly thickened. Moderate mitral annular calcification. Mild mitral valve regurgitation. Aortic Valve: Aortic sclerosis without stenosis. No aortic regurgitation. Tricuspid Valve: Unable to obtain RVSP due to minimal presence of tricuspid regurgitation. Estimated peak PA systolic pressure mmHg. Pulmonic Valve: Pulmonic valve not well visualized. Pericardium: Normal pericardium with no significant pericardial effusion. Aorta: Normal aortic root. IVC: Normal size and normal respiratory collapse consistent with normal right atrial pressure. Conclusions Normal left ventricular cavity size. Mild concentric left ventricular hypertrophy. Moderate left ventricular systolic dysfunction. Ejection fraction is visually estimated at 35 %. Tissue Doppler/Mitral Doppler indices are consistent with impaired relaxation (Stage I diastolic dysfunction). Akinesis and thinning of the entire septum, anterior wall, and apex consistent with old LAD territory infarct. Moderate mitral annular calcification. Mild mitral valve regurgitation. Unable to obtain RVSP due to minimal presence of tricuspid regurgitation. RA pressure estimated to be 3 mmHg. Electronically Signed By: Patel Lynch 29-Apr-2017 12:45:07 -0700 Patient Name: TOM RICK Study Date: 29-Apr-2017 [id number]
[2017-04-29 17:29] LABS: CHOL/HDL RATIO 5.9 RATIO
[2017-04-29] MEDS ORDERED: INSULIN GLARGINE [LANtus] 3 ML PEN SC SCH (21:00)
[2017-04-29] MEDS ORDERED: ATORVASTATIN 80 MG TAB PO SCH (21:00)
[2017-04-30] VITALS (9 sets, daily range): BP systolic 113–174; BP diastolic 56–80; PULSE 59–67; RESP 18
[2017-04-30] MEDS: ACCU-CHEK XX SCH (02:00)
[2017-04-30 07:34] LABS: BASOPHIL # 0.1 10^3/ul (0.0-0.1); BASOPHILS % 1.2 % (0.0-2.0); EOSINOPHILS # 0.9 10^3/ul (0.0-0.5); EOSINOPHILS % 9.3 % (0.0-7.0); HEMATOCRIT 45.7 % (42.0-52.0); LYMPHOCYTES # 2.1 10^3/ul (0.8-2.9); LYMPHOCYTES % 22.7 % (15.0-51.0); MEAN CORPUSCULAR HEMOGLOBIN 28.7 pg (29.0-33.0); MEAN CORPUSCULAR HGB CONC 32.8 g/dl (32.0-37.0); MEAN CORPUSCULAR VOLUME 87.4 fl (82.0-101.0); MEAN PLATELET VOLUME 10.2 fl (7.4-10.4); MONOCYTE # 0.9 10^3/ul (0.3-0.9); MONOCYTES % 9.4 % (0.0-11.0); NEUTROPHILS % 56.6 % (39.0-77.0); PLATELET COUNT 201 10^3/UL (140-415); RED BLOOD COUNT 5.23 10^6/ul (4.70-6.10); RED CELL DISTRIBUTION WIDTH 13.2 % (11.5-14.5); WHITE BLOOD COUNT 9.3 10^3/ul (4.8-10.8)
[2017-04-30 07:52] LABS: CREATININE 0.81 mg/dl (0.61-1.24)
[2017-04-30] MEDS: LORATADINE 10 MG TAB PO SCH (08:16)
[2017-04-30] MEDS: LISINOPRIL 5 MG TAB PO SCH (08:17)
[2017-04-30] MEDS: FAMOTIDINE 20 MG TAB PO SCH (08:17)
[2017-04-30] MEDS: CLOPIDOGREL 75 MG TAB PO SCH (08:17)
[2017-04-30] MEDS: ENOXAPARIN 40 MG/0.4 ML SYG SC SCH (08:18)
[2017-04-30] MEDS: INSULIN ASPART [NOVOLOG] 3 ML PEN SC SCH ×6 (08:19→18:09)
[2017-04-30] MEDS: ALBUTEROL 0.5% (NEB) 2.5 MG/0.5 ML AMP HHN SCH ×2 (08:23→14:32)
--- NOTE | 2017-04-30 16:55 | PN ---
Date/Time of Note Date/Time of Note DATE: 04/30/17 TIME: 16:54 Assessment/Plan VTE Prophylaxis VTE Prophylaxis Intervention: SCD's Lines/Catheters IV Catheter Type (from Nrs): [place] Urinary Cath still in place: No Assessment/Plan Assessment/Plan 67 yo M with pmhx HTN, DM2, HL presented with 4 days of LUE tingling and clumsiness, CT imaging suggestive of subacute R lacunar infarct, which would be consistent with patient's clinical presentation. This infarct was most likely the result of small vessel disease from the patients vascular risk factors including HTN/DM/HL PLAN MRI brain to confirm CVA MRA brain/neck to aid in localization/risk factor eval carotid dopplers already negative TTE-->EF 35%, unchanged from TTE 11.16 tele to eval for AFib, valvulopathy, PFO FLP PT/OT/ST ongoing cont home BP meds, cont statin, cont insulin CDE cs for DM teaching check orthostatics given c/o lightheadedness from standing, possibly autonomic neuropathy from DM2 given pt with stroke while already on asa, uptitrated to plavix (alt antiplatelet agent) though the evidence on this practice is evolving ARU in AM Subjective 24 Hr Interval Summary Free Text/Dictation Seen with speech. Amenable to ARU Exam/Review of Systems Vital Signs Vitals Vital Signs Date Time Temp Pulse Resp B/P Pulse Ox O2 Delivery O2 Flow Rate FiO2 04/30/17 16:29 67 04/30/17 15:51 98.3 18 113/56 94 04/30/17 14:32 21 04/28/17 20:00 Room Air Intake and Output 04/29/17 04/29/17 04/30/17 15:00 23:00 07:00 Intake Total 600 ml Balance 600 ml Exam +mild L sided facial droop no mrg lungs clear abd soft no rashes no edema Results Result Diagram: 04/30/17 0636 04/30/17 0636 Results 24 hrs Laboratory Tests Test 04/29/17 16:55 04/29/17 17:02 04/29/17 20:13 04/30/17 06:36 Triglycerides Level 270 H Cholesterol Level 225 H LDL Cholesterol, Calculated 133 HDL Cholesterol 38 Cholesterol/HDL Ratio 5.9 Bedside Glucose 91 202 White Blood Count 9.3 # Red Blood Count 5.23 Hemoglobin 15.0 Hematocrit 45.7 Mean Corpuscular Volume 87.4 Mean Corpuscular Hemoglobin 28.7 L Mean Corpuscular Hemoglobin Concent 32.8 Red Cell Distribution Width 13.2 Platelet Count 201 Mean Platelet Volume 10.2 Neutrophils % 56.6 Lymphocytes % 22.7 Monocytes % 9.4 Eosinophils % 9.3 H Basophils % 1.2 Nucleated Red Blood Cells % 0.0 Neutrophils # (Manual) 5.3 Lymphocytes # 2.1 Monocytes # 0.9 Eosinophils # 0.9 H Basophils # 0.1 Nucleated Red Blood Cells # 0.0 Blood Urea Nitrogen 17 Creatinine 0.81 Test 04/30/17 07:52 04/30/17 11:37 Bedside Glucose 163 167 Medications Medications Current Medications Ondansetron HCl (Zofran Tab) 4 mg Q6H PRN PO NAUSEA AND/OR VOMITING; Start at 14:30 Ondansetron HCl (Zofran Inj) 4 mg Q6H PRN IV NAUSEA AND/OR VOMITING; Start at 14:30 Metoclopramide HCl (Reglan) 10 mg Q6H PRN IV NAUSEA AND/OR VOMITING; Start at 14:30 Acetaminophen (Tylenol Tab) 650 mg Q6H PRN PO PAIN LEVEL 1-3 OR FEVER; Start at 14:30 Acetaminophen/ Hydrocodone Bitart ([place] (5/325)) 1 tab Q6H PRN PO PAIN LEVEL 4 -6; Start 04/28/17 at 14:30 Docusate Sodium (Colace) 100 mg Q12H PRN PO CONSTIPATION; Start 04/28/17 at 14: 30 Magnesium Hydroxide (Milk Of Mag) 30 ml DAILY PRN PO CONSTIPATION; Start at 14:30 Bisacodyl (Dulcolax) 5 mg DAILY PRN PO CONSTIPATION; Start 04/28/17 at 14:30 Bisacodyl (Dulcolax Supp) 10 mg DAILY PRN [place] CONSTIPATION; Start 04/28/17 at 14 :30 Enoxaparin Sodium (Lovenox) 40 mg DAILY SC Last administered on 04/30/17t 08:18 ; Admin Dose 40 MG; Start 04/29/17 at 09:00 Carvedilol (Coreg) 6.25 mg BID PO Last administered on 04/30/17 08:17; Admin Dose 6.25 MG; Start 04/28/17 at 21:00 Famotidine (Pepcid) 20 mg DAILY PO Last administered on 04/30/17 08:17; Admin Dose 20 MG; Start 04/29/17 at 09:00 Lisinopril (Zestril) 5 mg DAILY PO Last administered on 04/30/17 08:17; Admin Dose 5 MG; Start 04/29/17 at 09:00 Loratadine (Claritin) 10 mg DAILY PO Last administered on 04/30/17 08:16; Admin Dose 10 MG; Start 04/29/17 at 09:00 Diagnostic Test (Pha) (Accu-Chek) 1 ea 02 XX ; Start 04/29/17 at 02:00 Miscellaneous Information 1 ea NOTE XX ; Start 04/28/17 at 15:00 Glucose (Glutose) 15 gm Q15M PRN PO DECREASED GLUCOSE; Start 04/28/17 at 15:00 Glucose (Glutose) 22.5 gm Q15M PRN PO DECREASED GLUCOSE; Start 04/28/17 at 15: 00 Dextrose (D50w Syringe) 25 ml Q15M PRN IV DECREASED GLUCOSE; Start 04/28/17 at 15:00 Dextrose (D50w Syringe) 50 ml Q15M PRN IV DECREASED GLUCOSE; Start 04/28/17 at 15:00 Glucagon (Glucagen) 1 mg Q15M PRN IM DECREASED GLUCOSE; Start 04/28/17 at 15:00 Glucose (Glutose) 15 gm Q15M PRN BUCCAL DECREASED GLUCOSE; Start 04/28/17 at 15 :00 Clopidogrel Bisulfate (plaVIX) 75 mg DAILY PO Last administered on 04/30/17 08 :17; Admin Dose 75 MG; Start 04/29/17 at 09:00 Atorvastatin Calcium (Lipitor) 80 mg HS PO Last administered on 04/29/17 20:07 ; Admin Dose 80 MG; Start 04/29/17 at 21:00 Insulin Glargine (Lantus) 22 unit QHS SC Last administered on 04/29/17 20:18; Admin Dose 22 UNIT; Start 04/29/17 at 21:00 Procedures Procedures TTE Conclusions Normal left ventricular cavity size. Mild concentric left ventricular hypertrophy. Moderate left ventricular systolic dysfunction. Ejection fraction is visually estimated at 35 %. Tissue Doppler/Mitral Doppler indices are consistent with impaired relaxation (Stage I diastolic dysfunction). Akinesis and thinning of the entire septum, anterior wall, and apex consistent with old LAD territory infarct. Moderate mitral annular calcification. Mild mitral valve regurgitation. Unable to obtain RVSP due to minimal presence of tricuspid regurgitation. RA pressure estimated to be 3 mmHg. MICKEY ALVA MD Apr 30, 2017 16:54
--- NOTE | 2017-04-30 17:35 | DS ---
Date/Time of Note Date/Time of Note DATE: 04/30/17 TIME: 17:33 Discharge Summary Admission/Discharge Info Admit Date/Time Apr 28, 2017 at 12:36 Discharge Date/Time Discharge Diagnosis subacute stroke Patient Condition: Stable Hx of Present Illness Greenlandic language line used to facilitate communication CC: "My left side feels like it's wrapped around a tree" HPI 67 yo M with pmhx DM2, HTN, HL presents with LUE tingling and weakness which started on Wednesday (4 days prior to admission). Pt initially thought that his arm had "fallen asleep" but the tingling in his arm did not fully improve. Since then he's still been having tingling and decreased sensation as well as clumsiness of his L arm. Pt also reports he has at times been feeling "dizzy" when he changes position from laying to sitting and standing. No chest pain or SOB. Hospital Course 67 yo M with pmhx HTN, DM2, HL presented with 4 days of LUE tingling and clumsiness, CT imaging suggestive of subacute R lacunar infarct, which would be consistent with patient's clinical presentation. This infarct was most likely the result of small vessel disease from the patients vascular risk factors including HTN/DM/HL. MRI brain to confirm CVA and MRA brain/neck to aid in localization/risk factor eval still pending at time of discharge carotid dopplers negative TTE-->EF 35%, unchanged from TTE 11.16 No AFib on tele. Statin uptitrated, home BP meds continued. Pt had DM teaching Given pt with stroke while already on asa, uptitrated to plavix (alt antiplatelet agent) though the evidence on this practice is evolving Pt transferred to ARU for further halfway Meds Active Scripts Famotidine* (Pepcid*) 20 Mg Tablet, 20 MG PO DAILY, #20 TAB Prov:WHIT ESPINOSA PA-C 01/01/17 Loratadine* (Claritin*) 10 Mg Tablet, 10 MG PO DAILY, #20 TAB Prov:WHIT ESPINOSA PA-C 01/01/17 Insulin Glargine* (Lantus*) 100 Unit/Ml Soln, 30 UNIT SC QHS for 30 Days Prov:MARCIO CRAIG NP 07/24/16 Insulin Aspart* (Novolog Insulin Pen*) 100 Unit/Ml Soln, 9 UNIT SC WITH MEALS for 30 Days Prov:MARCIO CRAIG NP 07/24/16 Bisacodyl* (Bisacodyl*) 5 Mg Tablet.dr, 5 MG PO DAILY Y for CONSTIPATION for 7 Days Prov:MARCIO CRAIG NP 07/24/16 Albuterol Sulfate (Albuterol Sulfate) 2.5 Mg/0.5 Ml Vial.neb, 2.5 MG HHN Q6HWA RESP THERAPY for 7 Days Prov:MARCIO CRAIG NP 07/24/16 Lisinopril* (Lisinopril*) 5 Mg Tablet, 5 MG PO DAILY for 30 Days, TAB Prov:MARCIO CRAIG NP 07/23/16 Atorvastatin* (Atorvastatin*) 40 Mg Tablet, 40 MG PO HS for 30 Days, TAB Prov:MARCIO CRAIG NP 07/23/16 Aspirin (Aspirin) 81 Mg Chew, 81 MG PO DAILY for 30 Days, TAB Prov:MARCIO CRAIG NP 07/23/16 Carvedilol* (Carvedilol*) 6.25 Mg Tablet, 6.25 MG PO BID, #60 TAB 1 Refill Prov:RAJWINDER CHEW 03/13/16 Discontinued Scripts Benzonatate* (Tessalon Perle*) 100 Mg Capsule, 100 MG PO Q8H Y for COUGH, #30 CAP Prov:WHIT ESPINOSA PA-C 01/01/17 Zolpidem Tartrate (Ambien José Miguel) 5 Mg Tablet, 5 MG PO QHS Y for INSOMNIA for 7 Days, TAB Prov:MARCIO CRAIG NP 07/24/16 Insulin Aspart* (Novolog Insulin Pen*) 100 Unit/Ml Soln, 0 UNIT SC WITH MEALS BEDTIME for 30 Days Prov:MARCIO CRAIG NP 07/24/16 Hydrocodone Bit-Acetaminophen (Hydrocodone Bit-APAP) 5-325MG Tablet, 1 TAB PO Q6H Y for PAIN LEVEL 4-6 for 7 Days, TAB Prov:MARCIO CRAIG NP 07/24/16 Famotidine* (Famotidine*) 20 Mg Tablet, 20 MG PO Q12 for 7 Days, TAB Prov:MARCIO CRAIG NP 07/24/16 Albuterol Sulfate (Albuterol Sulfate) 2.5 Mg/0.5 Ml Vial.neb, 2.5 MG HHN Q4H RESP THERAPY Y for SHORTNESS OF BREATH for 7 Days Prov:MARCIO CRAIG COVER STRIPPER 07/24/16 Hydrocodone/Acetaminophen ([place] 10-325 Tablet) 1 Each Tablet, 1 EACH PO Q6H for PAIN, #30 TAB Prov:MARCIO CRAIG COVER STRIPPER 07/23/16 Levofloxacin* (Levaquin*) 500 Mg Tablet, 500 MG PO DAILY for 7 Days, TAB Prov:MARCIO CRAIG COVER STRIPPER 07/23/16 Follow-up Plan ARU Primary Care Provider Not On Staff Doctor Time spent on discharge: > 30 minutes Pending Labs Laboratory Tests Test 04/29/17 20:13 04/30/17 06:36 04/30/17 07:52 04/30/17 11:37 Bedside Glucose 202mg/dL (70-220) 163mg/dL (70-220) 167mg/dL (70-220) White Blood Count 9.310^3/ul (4.8-10.8) Red Blood Count 5.2310^6/ul (4.70-6.10) Hemoglobin 15.0g/dl (14.0-18.0) Hematocrit 45.7% (42.0-52.0) Mean Corpuscular Volume 87.4fl (82.0-101.0) Mean Corpuscular Hemoglobin 28.7pg (29.0-33.0) Mean Corpuscular Hemoglobin Concent 32.8g/dl (32.0-37.0) Red Cell Distribution Width 13.2% (11.5-14.5) Platelet Count 88155^3/UL (140-415) Mean Platelet Volume 10.2fl (7.4-10.4) Neutrophils % 56.6% (39.0-77.0) Lymphocytes % 22.7% (15.0-51.0) Monocytes % 9.4% (0.0-11.0) Eosinophils % 9.3% (0.0-7.0) Basophils % 1.2% (0.0-2.0) Nucleated Red Blood Cells % 0.0/100WBC (0.0-0.0) Neutrophils # (Manual) 5.310^3/ul (1.7-7.5) Lymphocytes # 2.110^3/ul (0.8-2.9) Monocytes # 0.910^3/ul (0.3-0.9) Eosinophils # 0.910^3/ul (0.0-0.5) Basophils # 0.110^3/ul (0.0-0.1) Nucleated Red Blood Cells # 0.010^3/ul (0.0-0.0) Blood Urea Nitrogen 17mg/dl (7-20) Creatinine 0.81mg/dl (0.61-1.24) MICKEY ALVA MD Apr 30, 2017 17:34
--- NOTE | 2017-05-01 04:25 | RADRPT ---
PROCEDURE: MR Brain with and without contrast, MRA brain with and without contrast, MRA neck with and without contrast. CLINICAL INDICATION: 67-year-old male with possible stroke. TECHNIQUE: An MRI of the brain was performed with and without contrast utilizing the following seq uences: Sagittal T1 weighted, sagittal FLAIR, axial T1, axial FLAIR, axial T2 weighted, axial diffu ventura weighted (EPI technique [id number]), axial ADC mapping, and post contrast axial and coronal T1 weig hted, and axial FLAIR. MRA head: 3-D [id number] imaging through the cerebral vasculature with M IP reconstructions. MRA neck: An MRA of the major cervical arteries was performed with and without contrast utilizing axial 2D time of flight. Source and MIPPED images were reviewed. 20 cc of Magnev ist was given intravenously without complication. Images were reviewed on a high-resolution PACS [employer]. COMPARISON: CT head 04/28/2017 FINDINGS: MRI brain: Diffusion weighted sequences demonstrate focus of acute/recent infarct involving the rig ht subthalamic nucleus measuring 9 x 16 mm (axial series image 12), with mild associated edema and e roland enhancement along the medial aspect of the infarct (axial series image 11). The susceptibility weighted images are normal in appearance, without evidence of hemorrhage involving the region of in farct. No additional areas of infarct are visualized. There is no intracranial hemorrhage, extra-a xial fluid collection, mass lesion, midline shift or hydrocephalous. There is a baseline of mild to moderate prominence of the cerebral sulci, lateral and third ventricles. There is moderate patchy and confluent periventricular and subcortical to the / FLAIR signal hyperintensity. The basal ciste rns are patent. Normal flow voids are visible the proximal intracranial arteries and dural sinuses, indicating patency. The midline structures are intact. The postcontrast images show no additional areas of abnormal parenchymal, leptomeningeal, or dural enhancement. There are mild inflammatory changes involving the bilateral ethmoid air cells, sphenoid and maxillar y sinuses. The mastoid air cells and middle ear cavities are normally aerated. The orbits, calvari um and extracranial soft tissues are normal in appearance. MRA head: Anterior circulation: The petrous and cavernous segments of the internal carotid arterie s are normal in appearance. The supraclinoid internal carotid arteries are normal in appearance. T he middle and anterior cerebral arteries as well as their branches are normal. The anterior communi cating artery is patent. The posterior communicating arteries are diminutive, but patent. Posterior circulation: The vertebral arteries are codominant. The basilar artery and its branches are normal in appearance. The posterior cerebral arteries are normal in appearance. There is no an eurysm, hemodynamically significant stenosis or vascular malformation. MRA neck: The common carotid arteries are patent and normal in caliber. The carotid bulbs appear n ormal, and no hemodynamically significant stenosis is evident within either internal carotid artery. The cervical segments of the internal carotid arteries are normal in appearance. The vertebral arteries are patent and normal in caliber bilaterally. The vertebral arteries are cod ominant. There is no evidence of vascular stenosis, dissection, aneurysm or occlusion. The visualiz ed neck soft tissues are unremarkable. IMPRESSION: 1. Acute/recent infarct involving the right subthalamic nucleus measuring 9 x 16 mm with early enha ncement along the medial aspect of the infarct. No evidence of hemorrhagic conversion at this time. 2. No intracranial hemorrhage, enhancing mass lesion or hydrocephalous. 3. Mild to moderate peripheral and central cerebral volume loss. 4. Moderate patchy and confluent periventricular and subcortical white matter lesions, likely relat ed to chronic microangiopathic changes. 5. No additional areas of abnormal enhancement are seen. 6. Normal MRA of the head with and without contrast. No aneurysm, hemodynamically significant sten osis or vascular malformation. 7. Normal MRA of the neck with and without contrast. No aneurysm, dissection or hemodynamically si gnificant stenosis. The above findings were discussed with Patient's Nurse Resmin by telephone on 05/01/2017 12:39:10 AM . RPTAT: HGAS .Mukul Alvarez MD, Date Time Electronically viewed and signed by .Mukul Alvarez MD, on 05/01/2017 00:46 .S/
== END 2017-04-30 19:25 | disposition home or self-care (01) | DRG 66 ==
LOC: E/R 11:36 → MS3 12:36 → E/R 16:42 → MS4 21:50
PROVIDERS: ADMIT Internal Medicine Pulmonary Disease; ATTEND Internal Medicine Pulmonary Disease
DX: I63.8 Other cerebral infarction (principal); I10 Essential (primary) hypertension; I99.8 Other disorder of circulatory system; R29.810 Facial weakness; E78.5 Hyperlipidemia, unspecified; E11.9 Type 2 diabetes mellitus without complications; Z79.4 Long term (current) use of insulin
CPT/HCPCS: 36415; 70450; 70546; 70549; 70553; 71010; 80048; 80061; 82565; 82962; 83036; 84484; 84520; 85025; 85610; 85730; 92523; 92610; 93005; 93306; 93880; 94640; 94664; 97163; 97166; J1650; J1815

== ENCOUNTER 2017-04-30 20:23 | Inpatient (IN) | payer MEDICARE, OTHER ==
[~2017-04-30] VITALS: Ht 175.3 cm; Wt 86.5 kg
[2017-04-30 19:50] VITALS: Ht 175.3 cm; Wt 86.5 kg
[~2017-04-30 20:23] MED LIST changes: -BENZ100C70 PO; -FAMO20TA18 PO; -HYDR-3498 PO; -HYDR-902 PO; -LEVO500T72 PO; -ZOLP5TAB PO
[2017-04-30] MEDS: INSULIN GLARGINE [LANtus] 3 ML PEN SC SCH (21:00)
[2017-04-30] MEDS ORDERED: BISACODYL (EC) 5 MG TAB PO PRN (21:00)
[2017-04-30] MEDS: ATORVASTATIN 80 MG TAB PO SCH (21:04)
[2017-04-30] MEDS ORDERED: GLUCOSE GEL 15 GRAM TUBE BUCCAL PRN (21:30)
[2017-04-30] MEDS ORDERED: GLUCAGON 1 MG INJ IM PRN (21:30)
[2017-04-30] MEDS ORDERED: DEXTROSE 50% 50 ML SYRINGE IV PRN ×2 (21:30)
[2017-04-30] MEDS ORDERED: GLUCOSE GEL 15 GRAM TUBE PO PRN ×2 (21:30)
[2017-05-01] MEDS: ACCU-CHEK XX SCH (02:00)
[2017-05-01 07:30] VITALS: BP 148/77; RESP 18
[2017-05-01] MEDS: ALBUTEROL 0.5% (NEB) 2.5 MG/0.5 ML AMP INH SCH ×3 (08:00→20:14)
[2017-05-01 08:03] LABS: BASOPHIL # 0.1 10^3/ul (0.0-0.1); BASOPHILS % 1.1 % (0.0-2.0); EOSINOPHILS # 1.1 10^3/ul (0.0-0.5); EOSINOPHILS % 13.5 % (0.0-7.0); HEMATOCRIT 43.2 % (42.0-52.0); LYMPHOCYTES # 2.1 10^3/ul (0.8-2.9); MEAN CORPUSCULAR HEMOGLOBIN 28.9 pg (29.0-33.0); MEAN CORPUSCULAR HGB CONC 32.4 g/dl (32.0-37.0); MEAN CORPUSCULAR VOLUME 89.3 fl (82.0-101.0); MEAN PLATELET VOLUME 10.6 fl (7.4-10.4); MONOCYTE # 0.9 10^3/ul (0.3-0.9); MONOCYTES % 10.9 % (0.0-11.0); NEUTROPHILS % 48.7 % (39.0-77.0); PLATELET COUNT 194 10^3/UL (140-415); RED BLOOD COUNT 4.84 10^6/ul (4.70-6.10); RED CELL DISTRIBUTION WIDTH 13.2 % (11.5-14.5); WHITE BLOOD COUNT 8.3 10^3/ul (4.8-10.8)
[2017-05-01 08:25] LABS: ALBUMIN 3.1 g/dl (3.3-4.9); ALBUMIN/GLOBULIN RATIO 1.03; BILIRUBIN,INDIRECT 0.4 mg/dl (0-1.1); BILIRUBIN,TOTAL 0.4 mg/dl (0.2-1.3); CALCIUM 8.9 mg/dl (8.4-10.2); CREATININE 0.95 mg/dl (0.61-1.24); POTASSIUM 4.4 mmol/L (3.5-5.1); TOTAL PROTEIN 6.1 g/dl (6.1-8.1)
[2017-05-01] MEDS: INSULIN ASPART [NOVOLOG] 3 ML PEN SC SCH ×3 (08:38→17:32)
[2017-05-01] MEDS: LISINOPRIL 5 MG TAB PO SCH (08:39)
[2017-05-01] MEDS: CLOPIDOGREL 75 MG TAB PO SCH (08:39)
[2017-05-01] MEDS: FAMOTIDINE 20 MG TAB PO SCH (08:39)
[2017-05-01] MEDS: LORATADINE 10 MG TAB PO SCH (08:39)
[2017-05-01 14:00] VITALS: BP 120/63; RESP 18
--- NOTE | 2017-05-01 16:28 | CONS ---
DATE OF ADMISSION: 04/30/2017 DATE OF CONSULTATION: 05/01/2017 REHABILITATION POST-ADMISSION PHYSICIAN EVALUATION REHABILITATION IMPAIRMENT CATEGORY: Right lacunar infarct 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 ACTIVE COMORBIDITIES: 1. Hypertension. 2. Diabetes mellitus type 2. 3. Impairments in self-care and mobility. HISTORY OF PRESENT ILLNESS: Patient is a 67-year-old right- handed gentleman with a history of hypertension and diabetes mellitus, who was admitted to [facility] with left-sided numbness and weakness. Head CT of the brain was noted to have a subacute right lacunar infarct in the right thalamus. Patient was noted to have significant impairments in self-care, mobility, as compared to baseline ,and has been cleared to transfer to the rehabilitation unit for comprehensive interdisciplinary rehab care. FUNCTIONAL HISTORY PRIOR TO RECENT EVENTS: He was independent in self-care tasks and mobility. CURRENT FUNCTIONAL STATUS: Patient requires minimal assist for self-care and mobility tasks. I have reviewed the preadmission screen, and patient's current functional status is consistent with the preadmission screen. SOCIAL HISTORY: Patient lives at home and hopes to return home upon discharge. PAST MEDICAL HISTORY: 1. Hypertension. 2. Diabetes mellitus. 3. Hyperlipidemia. CURRENT MEDICATIONS: 1. Lipitor 80 mg p.o. at bedtime. 2. Plavix 75 mg p.o. daily. 3. Pepcid 20 mg p.o. daily. 4. Insulin sliding scale. 5. Lantus 22 units subcu daily. 6. Lisinopril 5 mg p.o. daily. 7. Claritin 10 mg p.o. daily. ALLERGIES: PATIENT WITH NO KNOWN DRUG ALLERGIES. PHYSICAL EXAMINATION: VITAL SIGNS: Patient is currently afebrile. Pulse 71, respiratory rate 18, blood pressure 133/71. HEENT: The extraocular motions intact. Oropharynx clear. NECK: Supple. LUNGS: Clear anteriorly. HEART: S1, S2. ABDOMEN: Soft, nontender. Positive bowel sounds. NEUROLOGICAL: He is awake and alert. He is oriented to person and hospital. He follows simple 1-step commands. He demonstrates good strength in the right upper and lower extremity. He has antigravity strength in the left upper and lower extremity. He does have impaired dynamic balance. PLAN: Patient has been admitted for comprehensive interdisciplinary acute rehab and is anticipated to tolerate 3 hours of daily therapy in divided doses for at least 5/7 days a week. The treatment plan will include. 1. Physical therapy to focus on bed mobility, transfers and household ambulation with the goal of having patient reach a standby assist level. 2. Occupational therapy to focus on hygiene, grooming, dressing, bathing and toileting activities with goal to have patient reach standby assist level. 3. Speech therapy for full cognitive assessment and retraining with goal of having patient return to baseline cognition. 4. Rehabilitation nursing for carry over therapeutic interventions, the goal of continent of bowel and bladder, and the goal of patient and family education with regards to the aforementioned issues. ESTIMATED LENGTH OF STAY: Ten days. DISPOSITION GOAL: Home. REHABILITATION BARRIER: Weakness. INTERVENTION FOR BARRIER: Interdisciplinary approach I acknowledge I performed a full physical examination on this patient within 24 hours of admission to the rehabilitation unit and believe the patient is a good candidate for comprehensive interdisciplinary rehab care and is anticipated to make reasonable goals in a reasonable period of time as outlined above. Dictated By: Prosper Decker MD /logan/efren /Document#: [id number]
[2017-05-01 19:40] VITALS: BP 126/71; RESP 18
[2017-05-01] MEDS: ATORVASTATIN 80 MG TAB PO SCH (20:47)
[2017-05-01] MEDS: INSULIN GLARGINE [LANtus] 3 ML PEN SC SCH (20:49)
[2017-05-01] MEDS ORDERED: ZOLPIDEM 5 MG TAB PO PRN (22:00)
[2017-05-02] MEDS: ACCU-CHEK XX SCH (01:55)
[2017-05-02 03:07] VITALS: BP 134/66; RESP 18
[2017-05-02] MEDS: ALBUTEROL 0.5% (NEB) 2.5 MG/0.5 ML AMP INH SCH ×3 (07:33→19:20)
[2017-05-02] MEDS: CLOPIDOGREL 75 MG TAB PO SCH (08:07)
[2017-05-02] MEDS: LORATADINE 10 MG TAB PO SCH (08:07)
[2017-05-02] MEDS: FAMOTIDINE 20 MG TAB PO SCH (08:07)
[2017-05-02] MEDS: INSULIN ASPART [NOVOLOG] 3 ML PEN SC SCH ×3 (08:07→17:42)
[2017-05-02] MEDS: LISINOPRIL 5 MG TAB PO SCH (08:08)
[2017-05-02 20:00] VITALS: BP 122/67; RESP 18
[2017-05-02] MEDS: ATORVASTATIN 80 MG TAB PO SCH (21:04)
[2017-05-02] MEDS: INSULIN GLARGINE [LANtus] 3 ML PEN SC SCH (21:06)
[2017-05-03] MEDS: ACCU-CHEK XX SCH (01:38)
[2017-05-03 02:00] VITALS: BP 120/72; RESP 18
[2017-05-03 07:30] VITALS: BP 133/70; RESP 20
[2017-05-03] MEDS: ALBUTEROL 0.5% (NEB) 2.5 MG/0.5 ML AMP INH SCH ×3 (08:21→20:16)
[2017-05-03] MEDS: INSULIN ASPART [NOVOLOG] 3 ML PEN SC SCH ×3 (08:47→17:49)
[2017-05-03] MEDS: LISINOPRIL 5 MG TAB PO SCH (08:47)
[2017-05-03] MEDS: CLOPIDOGREL 75 MG TAB PO SCH (08:48)
[2017-05-03] MEDS: FAMOTIDINE 20 MG TAB PO SCH (08:48)
[2017-05-03] MEDS: LORATADINE 10 MG TAB PO SCH (08:48)
--- NOTE | 2017-05-03 11:32 | CONS ---
Date/Time of Note Date/Time of Note DATE: 05/03/17 TIME: 11:31 Consult Date/Type/Reason Admit Date/Time Apr 30, 2017 at 20:23 Initial Consult Date Subjective Comfortable Objective Vital Signs Date Time Temp Pulse Resp B/P Pulse Ox O2 Delivery O2 Flow Rate FiO2 05/03/17 08:17 75 18 97 21 05/03/17 07:30 97.6 133/70 Intake and Output 05/02/17 05/02/17 05/03/17 15:00 23:00 07:00 Intake Total 650 ml Balance 650 ml Interdisciplinary Team Conference: Bowel-continent Bladder-continent Integument- intact OT- Dressing-moderate Bathing-moderate Toileting-moderate PT Bed mobility-minimal Transfers-minimal Sfapgzbujy-qftgial-enpqz/min 175 feet - Interdisciplinary team conference held today please see note. Team is working towards discharge on 05/07 with physical therapy and Occupational Therapy follow- up. Results/Medications Result Diagram: 05/01/17 0708 05/01/17 0708 Results 24 hrs Laboratory Tests Test 05/02/17 11:55 05/02/17 17:23 05/02/17 20:55 05/03/17 07:57 Bedside Glucose 185 204 175 147 Medications Current Medications Loratadine (Claritin) 10 mg DAILY PO Last administered on 05/03/17 08:48; Admin Dose 10 MG; Start 05/01/17 at 09:00 Insulin Glargine (Lantus) 22 unit HS SC Last administered on 05/02/17 21:06; Admin Dose 22 UNIT; Start 04/30/17 at 21:00 Lisinopril (Zestril) 5 mg DAILY PO Last administered on 05/03/17 08:47; Admin Dose 5 MG; Start 05/01/17 at 09:00 Miscellaneous Information 1 ea NOTE XX ; Start 04/30/17 at 21:30 Glucose (Glutose) 15 gm Q15M PRN PO DECREASED GLUCOSE; Start 04/30/17 at 21:30 Glucose (Glutose) 22.5 gm Q15M PRN PO DECREASED GLUCOSE; Start 04/30/17 at 21: 30 Dextrose (D50w Syringe) 25 ml Q15M PRN IV DECREASED GLUCOSE; Start 04/30/17 at 21:30 Dextrose (D50w Syringe) 50 ml Q15M PRN IV DECREASED GLUCOSE; Start 04/30/17 at 21:30 Glucagon (Glucagen) 1 mg Q15M PRN IM DECREASED GLUCOSE; Start 04/30/17 at 21:30 Glucose (Glutose) 15 gm Q15M PRN BUCCAL DECREASED GLUCOSE; Start 04/30/17 at 21 :30 Famotidine (Pepcid) 20 mg DAILY PO Last administered on 05/03/17 08:48; Admin Dose 20 MG; Start 05/01/17 at 09:00 Atorvastatin Calcium (Lipitor) 80 mg DAILY@21 PO Last administered on 21:04; Admin Dose 80 MG; Start 04/30/17 at 21:04 Bisacodyl (Dulcolax) 5 mg DAILY PRN PO CONSTIPATION Last administered on 08:48; Admin Dose 5 MG; Start 04/30/17 at 21:00 Carvedilol (Coreg) 6.25 mg BID PO Last administered on 05/03/17 08:48; Admin Dose 6.25 MG; Start 04/30/17 at 21:05 Clopidogrel Bisulfate (plaVIX) 75 mg DAILY PO Last administered on 05/03/17 08 :48; Admin Dose 75 MG; Start 05/01/17 at 09:00 Diagnostic Test (Pha) (Accu-Chek) 1 ea 02 XX ; Start 05/01/17 at 02:00 Zolpidem Tartrate (Ambien) 5 mg HS PRN PO INSOMNIA; Start 05/01/17 at 22:00 ALEJANDRO RODRÍGUEZ MD May 03, 2017 11:32
--- NOTE | 2017-05-03 13:59 | CONS ---
DATE OF ADMISSION: 04/30/2017 DATE OF CONSULTATION: 05/03/2017 REASON FOR CONSULTATION: Dizziness, bradycardia. REFERRING PHYSICIAN: Dr. Danielle. HISTORY OF PRESENT ILLNESS: Mr. Connell is a 67-year-old with past medical history of coronary disease, status post-coronary artery bypass graft surgery in 07/2016, four vessels and EF of beta line of 35 percent. Diabetes mellitus, hypertension who initially presented 04/28/2017 with left-sided weakness and tingling of his face and associated dizziness. The patient at that time upon arrival, temperature 97.7, blood pressure 148/60, pulse 80, respiratory 20, saturating 97 percent. The patient's labs, white count of 13.6, hemoglobin 15.4, platelet count of 220,000. A sodium 134, potassium 4.1, creatinine 1.0, BUN 15. Troponin negative. Glucose of 299. INR 0.93. The patient underwent a carotid Doppler revealing no evidence of hemodynamic significant stenosis and bilateral internal carotid arteries. Normal antegrade flow. Mild calcific plaque in the right common carotid artery to 42 percent stenosis. The patient had a chest x-ray, revealing low lung volumes with compressive changes and bibasilar atelectasis. The patient had a head CT that revealed age indeterminate possible recent right thalamic lacunar infarct. No acute intracranial hemorrhage. Mild generalized volume loss. Subsequent a neck MRA when he was admitted revealing acute recent infarct involving the right subthalamic nucleus. Measure 9 x 60 mm with early enhancement along the medial aspect infarct. No evidence of hemorrhage, normal MRI of the head without and with and without contrast. Normal MRI of the neck with and without contrast. The patient does not have EKG in chart reviewed this time. The patient was admitted to [facility] and was placed on beta bill, MARTINA inhibitor. Continued on aspirin and had Plavix added to his regimen. The patient has now been transferred to acute rehab for ongoing care. Since our acute rehab the patient has had complaints of dizziness and has had heart rates in the 50s. Given these findings, cardiac consult requested. At this time, the patient denies chest pain, shortness of breath. PAST MEDICAL HISTORY: As above. MEDICATION: Currently in hospital, Ambien, Claritin, Zestril, Pepcid, Plavix 75 mg daily. Albuterol, insulin, carvedilol 6.25 mg orally twice daily, Lipitor 80 mg every night at bedtime. Lantus 22 units subcu every night at bedtime, Dulcolax p.r.n. ALLERGIES: NO KNOWN DRUG ALLERGIES. SOCIAL HISTORY: No tobacco. Social EtOH. No illicit drug use. FAMILY HISTORY: No history of cardiac or early CAD. REVIEW OF SYSTEMS: As above in HPI. CONSTITUTIONAL: No fevers, chills. RESPIRATORY: No current shortness of breath. HEART: Bradycardia, history of CABG. GASTROINTESTINAL: No vomiting. GENITOURINARY: No hematuria. MUSCULOSKELETAL: Degenerative joint disease. PSYCH: No documented psych history. NEUROLOGIC: CVA. PHYSICAL EXAMINATION: VITAL SIGNS: Temperature 97.6, blood pressure most recently 130/72, pulse 65, respiratory rate 20. Saturating 99 percent. GENERAL: The patient is alert, awake, complaining dizziness. NECK: JVP approximately 8 cm water. CHEST: Fair with mildly decreased breath sounds at the bases bilaterally. HEART: Bradycardic, regular rhythm. Normal S1, S2. I/ systolic murmur. Nondisplaced PMI. ABDOMEN: Positive bowel sounds. Soft. EXTREMITIES: No pitting edema. 1+ pulses. Bilateral posterior tibialis. LABORATORY: Most recently from 05/01/2017 white cells 8.3, hemoglobin 14, platelet count 194,000. Sodium of 138, potassium 4.4, creatinine of 0.9, BUN 19, glucose 147. IMAGING STUDIES: As above in HPI. No further imaging studies are reviewed. EKG: No current EKG for my review at this time. IMPRESSION: 1. Bradycardia to 50s, 40s, with posterior dizziness. Continue assess for contribution to the patient's dizziness. 2. Hypertension, under good control. 3. History of coronary artery disease, status post-coronary artery bypass graft surgery 07/2016. 4. Cardiomyopathy with decreased left ventricular ejection fraction, last only approximately 35 percent by echo on 04/29/2017. 5. Dyslipidemia. 6. Cerebrovascular acute. 7. Diabetes mellitus. RECOMMENDATIONS: 1. At this time, would check a baseline EKG now and repeat EKG in the morning. Document the patient's rhythm and rate. 2. Continue the patient's Zestril, but we will hold patient's carvedilol at this time. 3. Check a TSH for history of subclinical hyperthyroidism, there is not too many bouts of bradycardia. 4. Check orthostatics, also assess the patient's current contribution of possible orthostasis to dizziness, as patient also came in with dizziness on complaint and possibly getting neurologic complications. 5. Check an additional troponin for the patient not having any recent coronary syndromes, and continue patient's dual antiplatelet therapy for prevention of further cardiovascular events. 6. Continue the patient's PT and OT and will continue the patient's Lipitor at this time. Check fasting lipid panel. Adjust accordingly. Thank you for allowing me to take part in the care of this patient. I will continue to follow very closely with you. Further recommendations will be made as patient progresses through his in-patient hospital course. Dictated By: Emiliano Velasco /logan/arpit /Document#: [id number]
[2017-05-03 14:00] VITALS: BP 120/71; RESP 20
--- NOTE | 2017-05-03 14:28 | CONS ---
Date/Time of Note Date/Time of Note DATE: 05/03/17 TIME: 14:28 Assessment/Plan Assessment/Plan Chief Complaint/Hosp Course 1. Subacute cerebrovascular accident with Right lacunar infarct -Continue Plavix, antihypertensives and statin -Continue with ARU therapies. 2. Hypertension -Continue current antihypertensives. Will titrate as indicated 3. History of coronary artery disease, status post CABG 2016 -Continue current medical management. 4. Cardiomyopathy with last known EF 35 percent -Continue current medical management. 5. Dyslipidemia. -On statin 6. Type 2Diabetes mellitus. A1C 9.3. -Start Metformin. Continue accuchecks,ISS and Lantus. 7. Bradycardia -Cards following.Will monitor. 8.Self care impairment. Continue with PT goals. case discussed with . Problems: Consultation Date/Type/Reason Admit Date/Time Apr 30, 2017 at 20:23 Reason for Consultation Internal medicine Referring Provider: ALEJANDRO RODRÍGUEZ MD Hx of Present Illness This is a 67-year-old male with a past medical history of type 2 diabetes, coronary artery disease, cardiomyopathy with ejection fraction 35%, status post coronary artery bypass graft in 2016, essential hypertension, dyslipidemia, who was admitted at [facility] On 04/28/2017for evaluation of left upper extremity tingling and clumsiness. Patient was diagnosed with subacute right lacunar infarct and was managed on Plavix, uptitrated statin, diabetes medications and blood pressure medications. Patient was then accepted to acute rehabilitation unit on 05/02/2017 for further comprehensive interdisciplinary rehabilitation. A 12 point review of system was assessed and is negative other than what is mentioned in the HPI Past Medical History See HPI Past Surgical History See HPI Past Surgical Hx: no surgical history Social History Denied history of alcohol, smoking or illicit drug use. Smoking Status: Never smoker Exam/Review of Systems Vital Signs Vitals Vital Signs Date Time Temp Pulse Resp B/P Pulse Ox O2 Delivery O2 Flow Rate FiO2 05/03/17 13:14 68 16 96 21 05/03/17 07:30 97.6 133/70 Intake and Output 05/02/17 05/02/17 05/03/17 15:00 23:00 07:00 Intake Total 650 ml Balance 650 ml Exam General: Well developed,adequately built, not in any acute distress . HEENT: Normocephalic, Atraumatic, No laceration or hematoma; Eyes: PEERL, Conjunctiva clear, Anicteric sclera Neck: Supple without any lymphadenopathy, nontender, no JVD, no carotid bruits, trachea midline, no thyromegaly Cardiac: S1, S2 auscultated, regular rhythm and rate, no mumurs or gallop Pulmonary: Normal respiratory effort. Chest clear to auscultation bilaterally, no adventitious breath sounds GI: Abdomen normal to inspection. Soft, non tender, non- distended, no masses, no rebound tenderness or guarding. Bowel sounds active on all four quadrants Genitourinary: Deferred Extremities: Minimal weakness to left upper and lower extremities with numbness.No cyanosis, clubbing, or edema. Pulses [2+] bilaterally. Full ROM on all four extremities. No focal weakness appreciated. Neurologic: Alert to person, place, time, and situation. Affect appropriate, intact sensation. Skin: Clean,dry, and intact. No ecchymosis, no rashes, or lesions Results Result Diagram: 05/01/17 0708 05/01/17 0708 Results 24 hrs Laboratory Tests Test 05/02/17 17:23 05/02/17 20:55 05/03/17 07:57 05/03/17 11:46 Bedside Glucose 204 175 147 165 Medications Medications Current Medications Loratadine (Claritin) 10 mg DAILY PO Last administered on 05/03/17 08:48; Admin Dose 10 MG; Start 05/01/17 at 09:00 Insulin Glargine (Lantus) 22 unit HS SC Last administered on 05/02/17 21:06; Admin Dose 22 UNIT; Start 04/30/17 at 21:00 Lisinopril (Zestril) 5 mg DAILY PO Last administered on 05/03/17 08:47; Admin Dose 5 MG; Start 05/01/17 at 09:00 Miscellaneous Information 1 ea NOTE XX ; Start 04/30/17 at 21:30 Glucose (Glutose) 15 gm Q15M PRN PO DECREASED GLUCOSE; Start 04/30/17 at 21:30 Glucose (Glutose) 22.5 gm Q15M PRN PO DECREASED GLUCOSE; Start 04/30/17 at 21: 30 Dextrose (D50w Syringe) 25 ml Q15M PRN IV DECREASED GLUCOSE; Start 04/30/17 at 21:30 Dextrose (D50w Syringe) 50 ml Q15M PRN IV DECREASED GLUCOSE; Start 04/30/17 at 21:30 Glucagon (Glucagen) 1 mg Q15M PRN IM DECREASED GLUCOSE; Start 04/30/17 at 21:30 Glucose (Glutose) 15 gm Q15M PRN BUCCAL DECREASED GLUCOSE; Start 04/30/17 at 21 :30 Famotidine (Pepcid) 20 mg DAILY PO Last administered on 05/03/17 08:48; Admin Dose 20 MG; Start 05/01/17 at 09:00 Atorvastatin Calcium (Lipitor) 80 mg DAILY@21 PO Last administered on 21:04; Admin Dose 80 MG; Start 04/30/17 at 21:04 Bisacodyl (Dulcolax) 5 mg DAILY PRN PO CONSTIPATION Last administered on 08:48; Admin Dose 5 MG; Start 04/30/17 at 21:00 Carvedilol (Coreg) 6.25 mg BID PO Last administered on 05/03/17 08:48; Admin Dose 6.25 MG; Start 04/30/17 at 21:05; Status Future Hold Clopidogrel Bisulfate (plaVIX) 75 mg DAILY PO Last administered on 05/03/17 08 :48; Admin Dose 75 MG; Start 05/01/17 at 09:00 Diagnostic Test (Pha) (Accu-Chek) 1 ea 02 XX ; Start 05/01/17 at 02:00 Zolpidem Tartrate (Ambien) 5 mg HS PRN PO INSOMNIA; Start 05/01/17 at 22:00 TAMIKO PRIETO NP May 03, 2017 14:28
--- NOTE | 2017-05-03 16:34 | RADRPT ---
Vent Rate: 57 bpm RR Interval: 0 msec MA Interval: 170 msec QRS Duration: 88 msec QT Interval: 432 msec QTC Interval: 420 msec P-R-T [place]: 57 - 33 - 114 degrees Sinus bradycardia with sinus arrhythmia Septal infarct , age undetermined T wave abnormality, consider lateral ischemia Abnormal ECG Electronically Signed By: Carlos Enrique Costa [id number]
[2017-05-03] MEDS: metFORMIN 500 MG TAB PO SCH (17:49)
[2017-05-03 20:00] VITALS: BP 141/70; RESP 18
[2017-05-03] MEDS: ATORVASTATIN 80 MG TAB PO SCH (21:06)
[2017-05-03] MEDS: INSULIN GLARGINE [LANtus] 3 ML PEN SC SCH (21:10)
[2017-05-04 02:00] VITALS: BP 137/75; RESP 18
[2017-05-04] MEDS: ACCU-CHEK XX SCH (02:00)
[2017-05-04 07:31] LABS: CHOL/HDL RATIO 4.5 RATIO
[2017-05-04 08:00] VITALS: BP 174/80; RESP 18
[2017-05-04] MEDS: ALBUTEROL 0.5% (NEB) 2.5 MG/0.5 ML AMP INH SCH ×3 (08:00→19:48)
[2017-05-04] MEDS: metFORMIN 500 MG TAB PO SCH ×2 (08:05→17:52)
[2017-05-04] MEDS: INSULIN ASPART [NOVOLOG] 3 ML PEN SC SCH ×3 (08:06→17:53)
[2017-05-04] MEDS: FAMOTIDINE 20 MG TAB PO SCH (09:17)
[2017-05-04] MEDS: CLOPIDOGREL 75 MG TAB PO SCH (09:17)
[2017-05-04] MEDS: LISINOPRIL 5 MG TAB PO SCH (09:17)
[2017-05-04] MEDS: LORATADINE 10 MG TAB PO SCH (09:17)
--- NOTE | 2017-05-04 09:29 | CONS ---
Date/Time of Note Date/Time of Note DATE: 05/04/17 TIME: 09:26 Assessment/Plan Assessment/Plan Additional Assessment/Plan 1. Bradycardia to 50s - with dizziness. Continue assess for contribution to the patient's dizziness. Doubt cardiac dizziness - no Class I indication for pacer now - will follow. 2. Hypertension - on high side now - enmanuel re-evaluate - if still high - add additional Rx. 3. History of coronary artery disease, status post-coronary artery bypass graft surgery 07/2016. On meds, DR. Kirkland follows. 4. Cardiomyopathy with decreased left ventricular ejection fraction, last only approximately 35 percent by echo on 04/29/2017.Enmanuel evaluate for outpt ICD consideration. 5. Dyslipidemia. 6. Cerebrovascular acute - con't rehab - better now. 7. Diabetes mellitus. Consultation Date/Type/Reason Admit Date/Time Apr 30, 2017 at 20:23 Initial Consult Date Referring Provider: ALEJANDRO RODRÍGUEZ MD 24 HR Interval Summary Free Text/Dictation Now in rehab - able to coply with therapy - iomproved - able tp throw the ball around with PT - will monitor. BP high - will add therapy if con't HTN. ROS: No fever, no chills, no nausea, no vomiting, no diarrhea/constipation No recent weight changes No chest pain, no PND, no orthopnea No dizziness, blurred vision No thirst, no heat or cold intolerance Exam/Review of Systems Vital Signs Vitals Vital Signs Date Time Temp Pulse Resp B/P Pulse Ox O2 Delivery O2 Flow Rate FiO2 05/04/17 08:00 97.8 95 18 174/80 97 05/03/17 20:17 21 Intake and Output 05/03/17 05/03/17 05/04/17 14:59 22:59 06:59 Intake Total 120 ml Output Total 800 ml Balance -680 ml Exam General: WN/WD/NAD, AOx 3 HEENT: Unicetric/atraumatic/EOMI (follow commands) NECK: JVD elevated, no thyromegaly Lymph: no lymphadenopathy HEART: regular with no S3, II/ systolic murmur at apex LUNGS: Coarse sounds ABD: soft, NT, ND, +BS : Intact Neuro: s/p CVA SKIN: chronic changes EXT: trace edema Results Result Diagram: 05/01/17 0708 05/01/17 0708 Results 24 hrs Laboratory Tests Test 05/03/17 11:46 05/03/17 17:41 05/03/17 18:15 05/03/17 21:06 Bedside Glucose 165 149 173 Troponin I < 0.012 Thyroid Stimulating Hormone (TSH) 2.180 Test 05/04/17 00:45 05/04/17 06:07 05/04/17 08:00 Troponin I 0.019 Triglycerides Level 207 H Cholesterol Level 109 LDL Cholesterol, Calculated 44 HDL Cholesterol 24 L Cholesterol/HDL Ratio 4.5 Bedside Glucose 121 Medications Medications Current Medications Loratadine (Claritin) 10 mg DAILY PO Last administered on 05/04/17 09:17; Admin Dose 10 MG; Start 05/01/17 at 09:00 Insulin Glargine (Lantus) 22 unit HS SC Last administered on 05/03/17 21:10; Admin Dose 22 UNIT; Start 04/30/17 at 21:00 Lisinopril (Zestril) 5 mg DAILY PO Last administered on 05/04/17 09:17; Admin Dose 5 MG; Start 05/01/17 at 09:00 Miscellaneous Information 1 ea NOTE XX ; Start 04/30/17 at 21:30 Glucose (Glutose) 15 gm Q15M PRN PO DECREASED GLUCOSE; Start 04/30/17 at 21:30 Glucose (Glutose) 22.5 gm Q15M PRN PO DECREASED GLUCOSE; Start 04/30/17 at 21: 30 Dextrose (D50w Syringe) 25 ml Q15M PRN IV DECREASED GLUCOSE; Start 04/30/17 at 21:30 Dextrose (D50w Syringe) 50 ml Q15M PRN IV DECREASED GLUCOSE; Start 04/30/17 at 21:30 Glucagon (Glucagen) 1 mg Q15M PRN IM DECREASED GLUCOSE; Start 04/30/17 at 21:30 Glucose (Glutose) 15 gm Q15M PRN BUCCAL DECREASED GLUCOSE; Start 04/30/17 at 21 :30 Famotidine (Pepcid) 20 mg DAILY PO Last administered on 05/04/17 09:17; Admin Dose 20 MG; Start 05/01/17 at 09:00 Atorvastatin Calcium (Lipitor) 80 mg DAILY@21 PO Last administered on 21:06; Admin Dose 80 MG; Start 04/30/17 at 21:04 Bisacodyl (Dulcolax) 5 mg DAILY PRN PO CONSTIPATION Last administered on 08:48; Admin Dose 5 MG; Start 04/30/17 at 21:00 Carvedilol (Coreg) 6.25 mg BID PO Last administered on 05/03/17 08:48; Admin Dose 6.25 MG; Start 04/30/17 at 21:05; Status Future Hold Clopidogrel Bisulfate (plaVIX) 75 mg DAILY PO Last administered on 05/04/17 09 :17; Admin Dose 75 MG; Start 05/01/17 at 09:00 Diagnostic Test (Pha) (Accu-Chek) 1 ea 02 XX ; Start 05/01/17 at 02:00 Zolpidem Tartrate (Ambien) 5 mg HS PRN PO INSOMNIA; Start 05/01/17 at 22:00 Loperamide HCl (Imodium Cap) 4 mg BID PRN PO Diarrhea; Start 05/03/17 at 21:30 JENNI CRAWFORD MD May 04, 2017 09:29
--- NOTE | 2017-05-04 12:19 | CONS ---
Date/Time of Note Date/Time of Note DATE: 05/04/17 TIME: 12:17 Consult Date/Type/Reason Admit Date/Time Apr 30, 2017 at 20:23 Ordering Provider: ALEJANDRO RODRÍGUEZ MD Subjective Feeling better today Objective pulm-cta min assist ambulation Vital Signs Date Time Temp Pulse Resp B/P Pulse Ox O2 Delivery O2 Flow Rate FiO2 05/04/17 08:00 97.8 95 18 174/80 97 05/03/17 20:17 21 Intake and Output 05/03/17 05/03/17 05/04/17 15:00 23:00 07:00 Intake Total 120 ml Output Total 800 ml Balance -680 ml Results/Medications Result Diagram: 05/01/17 0708 05/01/17 0708 Results 24 hrs Laboratory Tests Test 05/03/17 17:41 05/03/17 18:15 05/03/17 21:06 05/04/17 00:45 Bedside Glucose 149 173 Troponin I < 0.012 0.019 Thyroid Stimulating Hormone (TSH) 2.180 Test 05/04/17 06:07 05/04/17 08:00 Triglycerides Level 207 H Cholesterol Level 109 LDL Cholesterol, Calculated 44 HDL Cholesterol 24 L Cholesterol/HDL Ratio 4.5 Bedside Glucose 121 Medications Current Medications Loratadine (Claritin) 10 mg DAILY PO Last administered on 05/04/17 09:17; Admin Dose 10 MG; Start 05/01/17 at 09:00 Insulin Glargine (Lantus) 22 unit HS SC Last administered on 05/03/17 21:10; Admin Dose 22 UNIT; Start 04/30/17 at 21:00 Lisinopril (Zestril) 5 mg DAILY PO Last administered on 05/04/17 09:17; Admin Dose 5 MG; Start 05/01/17 at 09:00 Miscellaneous Information 1 ea NOTE XX ; Start 04/30/17 at 21:30 Glucose (Glutose) 15 gm Q15M PRN PO DECREASED GLUCOSE; Start 04/30/17 at 21:30 Glucose (Glutose) 22.5 gm Q15M PRN PO DECREASED GLUCOSE; Start 04/30/17 at 21: 30 Dextrose (D50w Syringe) 25 ml Q15M PRN IV DECREASED GLUCOSE; Start 04/30/17 at 21:30 Dextrose (D50w Syringe) 50 ml Q15M PRN IV DECREASED GLUCOSE; Start 04/30/17 at 21:30 Glucagon (Glucagen) 1 mg Q15M PRN IM DECREASED GLUCOSE; Start 04/30/17 at 21:30 Glucose (Glutose) 15 gm Q15M PRN BUCCAL DECREASED GLUCOSE; Start 04/30/17 at 21 :30 Famotidine (Pepcid) 20 mg DAILY PO Last administered on 05/04/17 09:17; Admin Dose 20 MG; Start 05/01/17 at 09:00 Atorvastatin Calcium (Lipitor) 80 mg DAILY@21 PO Last administered on 21:06; Admin Dose 80 MG; Start 04/30/17 at 21:04 Bisacodyl (Dulcolax) 5 mg DAILY PRN PO CONSTIPATION Last administered on 08:48; Admin Dose 5 MG; Start 04/30/17 at 21:00 Carvedilol (Coreg) 6.25 mg BID PO Last administered on 05/03/17 08:48; Admin Dose 6.25 MG; Start 04/30/17 at 21:05; Status Future Hold Clopidogrel Bisulfate (plaVIX) 75 mg DAILY PO Last administered on 05/04/17 09 :17; Admin Dose 75 MG; Start 05/01/17 at 09:00 Diagnostic Test (Pha) (Accu-Chek) 1 ea 02 XX ; Start 05/01/17 at 02:00 Zolpidem Tartrate (Ambien) 5 mg HS PRN PO INSOMNIA; Start 05/01/17 at 22:00 Loperamide HCl (Imodium Cap) 4 mg BID PRN PO Diarrhea; Start 05/03/17 at 21:30 Assessment/Plan Additional Assessment/Plan Rehab- Right lacunar infarct 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 Progressing with rehab Hypertension. Diabetes mellitus type 2. Cardiac- appreciate Dr Kirkland input. Patient's sx improved today. ALEJANDRO RODRÍGUEZ MD May 04, 2017 12:19
--- NOTE | 2017-05-04 13:44 | CONS ---
Date/Time of Note Date/Time of Note DATE: 05/04/17 TIME: 13:42 Assessment/Plan Assessment/Plan Chief Complaint/Hosp Course 1. Subacute cerebrovascular accident with Right lacunar infarct -Continue Plavix, antihypertensives and statin -Continue with ARU therapies. 2. Hypertension -Continue current antihypertensives. Will titrate as indicated 3. History of coronary artery disease, status post CABG 2016 -Continue current medical management. 4. Cardiomyopathy with last known EF 35 percent -Continue current medical management. 5. Dyslipidemia. -On statin 6. Type 2Diabetes mellitus. A1C 9.3. -Continue accuchecks,ISS and Lantus along with Metformin. 7. Bradycardia,asymptomatic. Stable. -Cards following.Will monitor. 8.Self care impairment. Continue with PT goals. case discussed with . Problems: Consultation Date/Type/Reason Admit Date/Time Apr 30, 2017 at 20:23 Initial Consult Date Referring Provider: ALEJANDRO RODRÍGUEZ MD 24 HR Interval Summary Free Text/Dictation Overall, Patient doing well. Exam/Review of Systems Vital Signs Vitals Vital Signs Date Time Temp Pulse Resp B/P Pulse Ox O2 Delivery O2 Flow Rate FiO2 05/04/17 08:00 97.8 95 18 174/80 97 05/03/17 20:17 21 Intake and Output 05/03/17 05/03/17 05/04/17 15:00 23:00 07:00 Intake Total 120 ml Output Total 800 ml Balance -680 ml Exam General: Well developed,adequately built, not in any acute distress . HEENT: Normocephalic, Atraumatic, No laceration or hematoma; Eyes: PEERL, Conjunctiva clear, Anicteric sclera Neck: Supple without any lymphadenopathy, nontender, no JVD, no carotid bruits, trachea midline, no thyromegaly Cardiac: S1, S2 auscultated, regular rhythm and rate, no mumurs or gallop Pulmonary: Normal respiratory effort. Chest clear to auscultation bilaterally, no adventitious breath sounds GI: Abdomen normal to inspection. Soft, non tender, non- distended, no masses, no rebound tenderness or guarding. Bowel sounds active on all four quadrants Genitourinary: Deferred Extremities: Minimal weakness to left upper and lower extremities with numbness.No cyanosis, clubbing, or edema. Pulses [2+] bilaterally. Full ROM on all four extremities. No focal weakness appreciated. Neurologic: Alert to person, place, time, and situation. Affect appropriate, intact sensation. Skin: Clean,dry, and intact. No ecchymosis, no rashes, or lesions Results Result Diagram: 05/01/17 0708 05/01/17 0708 Results 24 hrs Laboratory Tests Test 05/03/17 17:41 05/03/17 18:15 05/03/17 21:06 05/04/17 00:45 Bedside Glucose 149 173 Troponin I < 0.012 0.019 Thyroid Stimulating Hormone (TSH) 2.180 Test 05/04/17 06:07 05/04/17 08:00 05/04/17 12:20 Triglycerides Level 207 H Cholesterol Level 109 LDL Cholesterol, Calculated 44 HDL Cholesterol 24 L Cholesterol/HDL Ratio 4.5 Bedside Glucose 121 181 Medications Medications Current Medications Loratadine (Claritin) 10 mg DAILY PO Last administered on 05/04/17 09:17; Admin Dose 10 MG; Start 05/01/17 at 09:00 Insulin Glargine (Lantus) 22 unit HS SC Last administered on 05/03/17 21:10; Admin Dose 22 UNIT; Start 04/30/17 at 21:00 Lisinopril (Zestril) 5 mg DAILY PO Last administered on 05/04/17 09:17; Admin Dose 5 MG; Start 05/01/17 at 09:00 Miscellaneous Information 1 ea NOTE XX ; Start 04/30/17 at 21:30 Glucose (Glutose) 15 gm Q15M PRN PO DECREASED GLUCOSE; Start 04/30/17 at 21:30 Glucose (Glutose) 22.5 gm Q15M PRN PO DECREASED GLUCOSE; Start 04/30/17 at 21: 30 Dextrose (D50w Syringe) 25 ml Q15M PRN IV DECREASED GLUCOSE; Start 04/30/17 at 21:30 Dextrose (D50w Syringe) 50 ml Q15M PRN IV DECREASED GLUCOSE; Start 04/30/17 at 21:30 Glucagon (Glucagen) 1 mg Q15M PRN IM DECREASED GLUCOSE; Start 04/30/17 at 21:30 Glucose (Glutose) 15 gm Q15M PRN BUCCAL DECREASED GLUCOSE; Start 04/30/17 at 21 :30 Famotidine (Pepcid) 20 mg DAILY PO Last administered on 05/04/17 09:17; Admin Dose 20 MG; Start 05/01/17 at 09:00 Atorvastatin Calcium (Lipitor) 80 mg DAILY@21 PO Last administered on 21:06; Admin Dose 80 MG; Start 04/30/17 at 21:04 Bisacodyl (Dulcolax) 5 mg DAILY PRN PO CONSTIPATION Last administered on 08:48; Admin Dose 5 MG; Start 04/30/17 at 21:00 Carvedilol (Coreg) 6.25 mg BID PO Last administered on 05/03/17 08:48; Admin Dose 6.25 MG; Start 04/30/17 at 21:05; Status Future Hold Clopidogrel Bisulfate (plaVIX) 75 mg DAILY PO Last administered on 05/04/17 09 :17; Admin Dose 75 MG; Start 05/01/17 at 09:00 Diagnostic Test (Pha) (Accu-Chek) 1 ea 02 XX ; Start 05/01/17 at 02:00 Zolpidem Tartrate (Ambien) 5 mg HS PRN PO INSOMNIA; Start 05/01/17 at 22:00 Loperamide HCl (Imodium Cap) 4 mg BID PRN PO Diarrhea; Start 05/03/17 at 21:30 TAMIKO PRIETO NP May 04, 2017 13:44
--- NOTE | 2017-05-04 18:08 | RADRPT ---
Vent Rate: 57 bpm RR Interval: 0 msec [place] Interval: 172 msec QRS Duration: 92 msec QT Interval: 420 msec QTC Interval: 408 msec P-R-T [place]: 42 - 16 - 123 degrees Sinus bradycardia with sinus arrhythmia Anteroseptal infarct , age undetermined T wave abnormality, consider lateral ischemia Abnormal ECG Electronically Signed By: Carlos Enrique Costa [id number]
[2017-05-04 20:00] VITALS: BP 153/81; RESP 18
[2017-05-04] MEDS ORDERED: ACETAMINOPHEN 325 MG TAB PO PRN (20:00)
[2017-05-04] MEDS: ATORVASTATIN 80 MG TAB PO SCH (20:58)
[2017-05-04] MEDS: INSULIN GLARGINE [LANtus] 3 ML PEN SC SCH (21:01)
[2017-05-05] MEDS: ACCU-CHEK XX SCH ×2 (02:00→20:53)
[2017-05-05 02:27] VITALS: BP 140/68; RESP 18
[2017-05-05 07:57] VITALS: BP 172/81; RESP 18
[2017-05-05] MEDS: ALBUTEROL 0.5% (NEB) 2.5 MG/0.5 ML AMP INH SCH ×3 (08:00→20:00)
[2017-05-05] MEDS: INSULIN ASPART [NOVOLOG] 3 ML PEN SC SCH ×3 (08:04→17:29)
[2017-05-05] MEDS: CLOPIDOGREL 75 MG TAB PO SCH (08:04)
[2017-05-05] MEDS: LORATADINE 10 MG TAB PO SCH (08:04)
[2017-05-05] MEDS: metFORMIN 500 MG TAB PO SCH ×2 (08:04→17:28)
[2017-05-05] MEDS: FAMOTIDINE 20 MG TAB PO SCH (08:05)
[2017-05-05] MEDS: LISINOPRIL 5 MG TAB PO SCH (08:05)
--- NOTE | 2017-05-05 12:37 | CONS ---
Date/Time of Note Date/Time of Note DATE: 05/05/17 TIME: 12:36 Consult Date/Type/Reason Admit Date/Time Apr 30, 2017 at 20:23 Ordering Provider: ALEJANDRO RODRÍGUEZ MD Subjective motivated Objective pulm-cta cga ambulation Vital Signs Date Time Temp Pulse Resp B/P Pulse Ox O2 Delivery O2 Flow Rate FiO2 05/05/17 07:57 98.3 73 18 172/81 97 05/04/17 19:49 21 Intake and Output 05/04/17 05/04/17 05/05/17 15:00 23:00 07:00 Intake Total 800 ml 520 ml Output Total 500 ml 500 ml Balance 300 ml 20 ml Results/Medications Result Diagram: 05/01/17 0708 05/01/17 0708 Results 24 hrs Laboratory Tests Test 05/04/17 17:28 05/04/17 20:57 05/05/17 07:51 05/05/17 12:13 Bedside Glucose 129 136 134 138 Medications Current Medications Loratadine (Claritin) 10 mg DAILY PO Last administered on 05/05/17 08:04; Admin Dose 10 MG; Start 05/01/17 at 09:00 Insulin Glargine (Lantus) 22 unit HS SC Last administered on 05/04/17 21:01; Admin Dose 22 UNIT; Start 04/30/17 at 21:00 Lisinopril (Zestril) 5 mg DAILY PO Last administered on 05/05/17 08:05; Admin Dose 5 MG; Start 05/01/17 at 09:00 Miscellaneous Information 1 ea NOTE XX ; Start 04/30/17 at 21:30 Glucose (Glutose) 15 gm Q15M PRN PO DECREASED GLUCOSE; Start 04/30/17 at 21:30 Glucose (Glutose) 22.5 gm Q15M PRN PO DECREASED GLUCOSE; Start 04/30/17 at 21: 30 Dextrose (D50w Syringe) 25 ml Q15M PRN IV DECREASED GLUCOSE; Start 04/30/17 at 21:30 Dextrose (D50w Syringe) 50 ml Q15M PRN IV DECREASED GLUCOSE; Start 04/30/17 at 21:30 Glucagon (Glucagen) 1 mg Q15M PRN IM DECREASED GLUCOSE; Start 04/30/17 at 21:30 Glucose (Glutose) 15 gm Q15M PRN BUCCAL DECREASED GLUCOSE; Start 04/30/17 at 21 :30 Famotidine (Pepcid) 20 mg DAILY PO Last administered on 05/05/17 08:05; Admin Dose 20 MG; Start 05/01/17 at 09:00 Atorvastatin Calcium (Lipitor) 80 mg DAILY@21 PO Last administered on 20:58; Admin Dose 80 MG; Start 04/30/17 at 21:04 Bisacodyl (Dulcolax) 5 mg DAILY PRN PO CONSTIPATION Last administered on 08:48; Admin Dose 5 MG; Start 04/30/17 at 21:00 Carvedilol (Coreg) 6.25 mg BID PO Last administered on 05/03/17 08:48; Admin Dose 6.25 MG; Start 04/30/17 at 21:05; Status Future Hold Clopidogrel Bisulfate (plaVIX) 75 mg DAILY PO Last administered on 05/05/17 08 :04; Admin Dose 75 MG; Start 05/01/17 at 09:00 Diagnostic Test (Pha) (Accu-Chek) 1 ea 02 XX ; Start 05/01/17 at 02:00 Zolpidem Tartrate (Ambien) 5 mg HS PRN PO INSOMNIA; Start 05/01/17 at 22:00 Loperamide HCl (Imodium Cap) 4 mg BID PRN PO Diarrhea; Start 05/03/17 at 21:30 Acetaminophen (Tylenol Tab) 650 mg Q4H PRN PO PAIN AND OR ELEVATED TEMP; Start 05/04/17 at 20:00 Assessment/Plan Additional Assessment/Plan Rehab- Right lacunar infarct 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 Continue with rehab Hypertension. Diabetes mellitus type 2. Cardiac- monitor ALEJANDRO RODRÍGUEZ MD May 05, 2017 12:37
--- NOTE | 2017-05-05 14:26 | PN ---
Date/Time of Note Date/Time of Note DATE: 05/05/17 TIME: 14:24 Assessment/Plan VTE Prophylaxis VTE Prophylaxis Intervention: SCD's Lines/Catheters IV [facility]from [facility] [place] Assessment/Plan Chief Complaint/Hosp Course 1. Subacute cerebrovascular accident with Right lacunar infarct -Continue Plavix, antihypertensives and statin -Continue with ARU therapies. 2. Hypertension, moderately controlled -Beta-blockers has been on hold secondary to bradycardia. Patient is on 5 mg lisinopril and would recommend titrate up and this will be deferred to cardiology. 3. History of coronary artery disease, status post CABG 2016 -Continue current medical management. 4. Cardiomyopathy with last known EF 35 percent -Continue current medical management. 5. Dyslipidemia. -On statin 6. Type 2Diabetes mellitus. A1C 9.3. -Continue accuchecks,ISS and Lantus along with Metformin. 7. Bradycardia,asymptomatic. Stable. -Cards following.Will monitor. 8.Self care impairment. Continue with PT goals. case discussed with . Problems: Subjective 24 Hr Interval Summary Free Text/Dictation Blood pressure has been slightly borderline high. Otherwise no acute distress. Exam/Review of Systems Vital Signs Vitals Vital Signs Date Time Temp Pulse Resp B/P Pulse Ox O2 Delivery O2 Flow Rate FiO2 05/05/17 07:57 98.3 73 18 172/81 97 05/04/17 19:49 21 Intake and Output 05/04/17 05/04/17 05/05/17 15:00 23:00 07:00 Intake Total 800 ml 520 ml Output Total 500 ml 500 ml Balance 300 ml 20 ml Exam General: Well developed,adequately built, not in any acute distress . HEENT: Normocephalic, Atraumatic, No laceration or hematoma; Eyes: PEERL, Conjunctiva clear, Anicteric sclera Neck: Supple without any lymphadenopathy, nontender, no JVD, no carotid bruits, trachea midline, no thyromegaly Cardiac: S1, S2 auscultated, regular rhythm and rate, no mumurs or gallop Pulmonary: Normal respiratory effort. Chest clear to auscultation bilaterally, no adventitious breath sounds GI: Abdomen normal to inspection. Soft, non tender, non- distended, no masses, no rebound tenderness or guarding. Bowel sounds active on all four quadrants Genitourinary: Deferred Extremities: Minimal weakness to left upper and lower extremities with numbness.No cyanosis, clubbing, or edema. Pulses [2+] bilaterally. Full ROM on all four extremities. No focal weakness appreciated. Neurologic: Alert to person, place, time, and situation. Affect appropriate, intact sensation. Skin: Clean,dry, and intact. No ecchymosis, no rashes, or lesions Results Result Diagram: 05/01/17 0708 05/01/17 0708 Results 24 hrs Laboratory Tests Test 05/04/17 17:28 05/04/17 20:57 05/05/17 07:51 05/05/17 12:13 Bedside Glucose 129 136 134 138 Medications Medications Current Medications Loratadine (Claritin) 10 mg DAILY PO Last administered on 05/05/17 08:04; Admin Dose 10 MG; Start 05/01/17 at 09:00 Insulin Glargine (Lantus) 22 unit HS SC Last administered on 05/04/17 21:01; Admin Dose 22 UNIT; Start 04/30/17 at 21:00 Lisinopril (Zestril) 5 mg DAILY PO Last administered on 05/05/17 08:05; Admin Dose 5 MG; Start 05/01/17 at 09:00 Miscellaneous Information 1 ea NOTE XX ; Start 04/30/17 at 21:30 Glucose (Glutose) 15 gm Q15M PRN PO DECREASED GLUCOSE; Start 04/30/17 at 21:30 Glucose (Glutose) 22.5 gm Q15M PRN PO DECREASED GLUCOSE; Start 04/30/17 at 21: 30 Dextrose (D50w Syringe) 25 ml Q15M PRN IV DECREASED GLUCOSE; Start 04/30/17 at 21:30 Dextrose (D50w Syringe) 50 ml Q15M PRN IV DECREASED GLUCOSE; Start 04/30/17 at 21:30 Glucagon (Glucagen) 1 mg Q15M PRN IM DECREASED GLUCOSE; Start 04/30/17 at 21:30 Glucose (Glutose) 15 gm Q15M PRN BUCCAL DECREASED GLUCOSE; Start 04/30/17 at 21 :30 Famotidine (Pepcid) 20 mg DAILY PO Last administered on 05/05/17 08:05; Admin Dose 20 MG; Start 05/01/17 at 09:00 Atorvastatin Calcium (Lipitor) 80 mg DAILY@21 PO Last administered on 20:58; Admin Dose 80 MG; Start 04/30/17 at 21:04 Bisacodyl (Dulcolax) 5 mg DAILY PRN PO CONSTIPATION Last administered on 08:48; Admin Dose 5 MG; Start 04/30/17 at 21:00 Carvedilol (Coreg) 6.25 mg BID PO Last administered on 05/03/17 08:48; Admin Dose 6.25 MG; Start 04/30/17 at 21:05; Status Future Hold Clopidogrel Bisulfate (plaVIX) 75 mg DAILY PO Last administered on 05/05/17 08 :04; Admin Dose 75 MG; Start 05/01/17 at 09:00 Diagnostic Test (Pha) (Accu-Chek) 1 ea 02 XX ; Start 05/01/17 at 02:00 Zolpidem Tartrate (Ambien) 5 mg HS PRN PO INSOMNIA; Start 05/01/17 at 22:00 Loperamide HCl (Imodium Cap) 4 mg BID PRN PO Diarrhea; Start 05/03/17 at 21:30 Acetaminophen (Tylenol Tab) 650 mg Q4H PRN PO PAIN AND OR ELEVATED TEMP; Start 05/04/17 at 20:00 TAMIKO PRIETO NP May 05, 2017 14:26
--- NOTE | 2017-05-05 16:36 | CONS ---
Date/Time of Note Date/Time of Note DATE: 05/05/17 TIME: 16:31 Assessment/Plan Assessment/Plan Chief Complaint/Hosp Course IMP: IMPRESSION: 1. Bradycardia to 50s, with dizziness. -which have both improved overall/negative trop x 2 2. Hypertension-now uncontrolled 3. History of coronary artery disease, status post-coronary artery bypass graft surgery 07/2016. 4. Cardiomyopathy with decreased left ventricular ejection fraction, last only approximately 35 percent by echo on 04/29/2017. 5. Dyslipidemia. 6. Cerebrovascular acute. 7. Diabetes mellitus. 8. Dizziness-improved REcc: -serial ecg's -Follow HR closely -Increase zestril to improve BP control -Contineu statin but decrease dose -PT/OT Problems: Consultation Date/Type/Reason Admit Date/Time Apr 30, 2017 at 20:23 Initial Consult Date 05/03/2017 Type of Consultation: cardiology Reason for Consultation BRadycardia/HTN Referring Provider: ALEJANDRO RODRÍGUEZ MD Exam/Review of Systems Vital Signs Vitals Vital Signs Date Time Temp Pulse Resp B/P Pulse Ox O2 Delivery O2 Flow Rate FiO2 05/05/17 07:57 98.3 73 18 172/81 97 05/04/17 19:49 21 Intake and Output 05/04/17 05/04/17 05/05/17 15:00 23:00 07:00 Intake Total 800 ml 520 ml Output Total 500 ml 500 ml Balance 300 ml 20 ml Exam Review of Systems: CONSTITUTIONAL: No fevers, chills. PULMONARY: No sob CARDIOVASCULAR: No chest pain/palpitations GASTROINTESTINAL: No nausea/vomiting. GENITOURINARY: No hematuria/dysuria. MUSCULOSKELETAL: No myagias/arthalgias. PSYCHIATRIC: The patient denies depression. NEUROLOGIC: No weakness Constitutional: alert, oriented Psych: no complaints Head: normocephalic ENMT: mucosa pink and moist Neck: jvd (8 cm water), supple Respiratory: diminished breath sounds (at bases/B) Cardiovascular: regular rate and rhythm Gastrointestinal: soft Musculoskeletal: muscle tone Extremities: normal pulses Neurological: other Results Result Diagram: 05/01/17 0708 05/01/17 0708 Results 24 hrs Laboratory Tests Test 05/04/17 17:28 05/04/17 20:57 05/05/17 07:51 05/05/17 12:13 Bedside Glucose 129 136 134 138 Medications Medications Current Medications Loratadine (Claritin) 10 mg DAILY PO Last administered on 05/05/17 08:04; Admin Dose 10 MG; Start 05/01/17 at 09:00 Insulin Glargine (Lantus) 22 unit HS SC Last administered on 05/04/17 21:01; Admin Dose 22 UNIT; Start 04/30/17 at 21:00 Lisinopril (Zestril) 5 mg DAILY PO Last administered on 05/05/17 08:05; Admin Dose 5 MG; Start 05/01/17 at 09:00 Miscellaneous Information 1 ea NOTE XX ; Start 04/30/17 at 21:30 Glucose (Glutose) 15 gm Q15M PRN PO DECREASED GLUCOSE; Start 04/30/17 at 21:30 Glucose (Glutose) 22.5 gm Q15M PRN PO DECREASED GLUCOSE; Start 04/30/17 at 21: 30 Dextrose (D50w Syringe) 25 ml Q15M PRN IV DECREASED GLUCOSE; Start 04/30/17 at 21:30 Dextrose (D50w Syringe) 50 ml Q15M PRN IV DECREASED GLUCOSE; Start 04/30/17 at 21:30 Glucagon (Glucagen) 1 mg Q15M PRN IM DECREASED GLUCOSE; Start 04/30/17 at 21:30 Glucose (Glutose) 15 gm Q15M PRN BUCCAL DECREASED GLUCOSE; Start 04/30/17 at 21 :30 Famotidine (Pepcid) 20 mg DAILY PO Last administered on 05/05/17 08:05; Admin Dose 20 MG; Start 05/01/17 at 09:00 Atorvastatin Calcium (Lipitor) 80 mg DAILY@21 PO Last administered on 20:58; Admin Dose 80 MG; Start 04/30/17 at 21:04 Bisacodyl (Dulcolax) 5 mg DAILY PRN PO CONSTIPATION Last administered on 08:48; Admin Dose 5 MG; Start 04/30/17 at 21:00 Carvedilol (Coreg) 6.25 mg BID PO Last administered on 05/03/17 08:48; Admin Dose 6.25 MG; Start 04/30/17 at 21:05; Status Future Hold Clopidogrel Bisulfate (plaVIX) 75 mg DAILY PO Last administered on 05/05/17 08 :04; Admin Dose 75 MG; Start 05/01/17 at 09:00 Diagnostic Test (Pha) (Accu-Chek) XX ; Start 05/01/17 at 02:00 Zolpidem Tartrate (Ambien) 5 mg HS PRN PO INSOMNIA; Start 05/01/17 at 22:00 Loperamide HCl (Imodium Cap) 4 mg BID PRN PO Diarrhea; Start 05/03/17 at 21:30 Acetaminophen (Tylenol Tab) 650 mg Q4H PRN PO PAIN AND OR ELEVATED TEMP; Start 05/04/17 at 20:00 BELLA WHITE May 05, 2017 16:36
[2017-05-05] MEDS ORDERED: LISINOPRIL 5 MG TAB PO ONE (17:30)
[2017-05-05 17:32] VITALS: BP 165/80; PULSE 53; RESP 18
[2017-05-05] MEDS: ATORVASTATIN 80 MG TAB PO SCH (20:49)
[2017-05-05] MEDS: LOPERAMIDE 2 MG CAP PO PRN (20:49)
[2017-05-05] MEDS: INSULIN GLARGINE [LANtus] 3 ML PEN SC SCH (20:53)
[2017-05-06 02:00] VITALS: BP 138/73; RESP 18
[2017-05-06] MEDS: ACCU-CHEK XX SCH ×5 (02:00→20:52)
--- NOTE | 2017-05-06 04:08 | CONS ---
DATE OF ADMISSION: 04/30/2017 DATE OF CONSULTATION: 05/05/2017 TYPE OF CONSULTATION: Psychological. CONSULTING PSYCHOLOGIST: Andi Gore, PhD. REASON FOR CONSULTATION: This consultation is requested by Dr. Lolis Decker in order to evaluate the cognitive and emotional function of this patient related to his present medical condition. HISTORY OF PRESENT ILLNESS: The patient is a 67-year-old male. He has a history of hypertension and type 2 diabetes. The patient was admitted to the hospital due to a stroke. The patient was complaining of left face falling asleep and left arm and left leg weakness. The patient did receive a CT scan, which was suggestive of a subacute right lacunar infarct. The patient was cleared medically and then sent to the acute multidisciplinary inpatient unit for acute multidisciplinary rehabilitation. The patient is motivated to get better and does want to return to his previous level of function. The patient is mainly Micronesian-speaking and this interview was completed in Micronesian and Slovak. The interviewer speak some Micronesian but was assisted by Marissa Guerrero state tested nursing assistant on the unit. FAMILY/SOCIAL HISTORY: The patient reports that he lives in a room that he rents from a friend. The patient does want to return there after discharge. The patient is concerned about his present health conditions, but does not have any money to really help him. MEDICATION: The patient is currently not on any psychotropic medications. SUBSTANCE USE: The patient reports that he does not smoke. He quit about a year ago. The patient reports that he does not drink alcohol or other drugs. Does at times drink a little, for the last 4 months he has cut down dramatically. MENTAL STATUS EXAMINATION: APPEARANCE: The patient is seen sitting up in his wheelchair. He was average height and weight. The patient is right-handed. BEHAVIOR: The patient was cooperative during the consultation. The patient did attempt to answer all questions presented to him by the interviewer. MOOD AND AFFECT: The patient's mood appears to be slightly depressed. Affect does appear to be slightly anxious. PERCEPTION: The patient reports no hallucinations or delusions. The patient was alert to person, place, situation, and time. MEMORY AND COGNITION: The patient's memory and cognition appear to be somewhat impaired. He was able to recall recent and remote events, but he did ave some difficulty. He could state the year but come up with the month being June. The patient was able to say who the President of [facility] is, and the governor of the state. He could not say who the mayor of the city is. The patient could not spell world backwards. The patient was able to do 1 serial 7 subtraction from 100 but then made an error. Overall the patient appears to be functioning well for having a stroke, but does have some slight residual mild impairment developing from the stroke. INTELLIGENCE: Appears to fall in the average range when he is functioning well. INSIGHT: Fair. JUDGMENT: Fair. THOUGHT CONTENT: The patient is concerned about his present medical condition. The patient wants to return to his previous level of functioning. The patient is fearful he will not recover well enough to be able to do what he was doing before. DISCUSSION: The patient can likely benefit from some cognitive/behavioral psychotherapy while he is on the unit. Psychotherapy would focus on his fears about his stroke and his medical condition. DIAGNOSTIC IMPRESSION: 1. 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 2. F01.50: Vascular dementia (mild) without behavioral disturbance. Thank you very much, Dr. Lolis Decker, for referring this individual. Please do not hesitate to call if you have additional questions. Dictated By: Andi Gore, PHD /logan/doyle /Document#: [id number] BOYD
[2017-05-06 07:30] VITALS: BP 132/77; RESP 18
[2017-05-06] MEDS: LORATADINE 10 MG TAB PO SCH (08:10)
[2017-05-06] MEDS: metFORMIN 500 MG TAB PO SCH ×2 (08:10→17:02)
[2017-05-06] MEDS: FAMOTIDINE 20 MG TAB PO SCH (08:10)
[2017-05-06] MEDS: CLOPIDOGREL 75 MG TAB PO SCH (08:10)
[2017-05-06] MEDS: LISINOPRIL 10 MG TAB PO SCH (08:10)
[2017-05-06] MEDS: INSULIN ASPART [NOVOLOG] 3 ML PEN SC SCH ×4 (08:14→17:05)
[2017-05-06] MEDS: ALBUTEROL 0.5% (NEB) 2.5 MG/0.5 ML AMP INH SCH ×3 (10:08→19:43)
--- NOTE | 2017-05-06 14:01 | CONS ---
Date/Time of Note Date/Time of Note DATE: 05/06/17 TIME: 14:01 Consult Date/Type/Reason Admit Date/Time Apr 30, 2017 at 20:23 Type of Consultation: cardiology Ordering Provider: ALEJANDRO RODRÍGUEZ MD Subjective No new complaints Objective pulm-cta abd-soft sba ambulation Vital Signs Date Time Temp Pulse Resp B/P Pulse Ox O2 Delivery O2 Flow Rate FiO2 05/06/17 10:08 63 18 98 21 05/06/17 07:30 98.3 132/77 Intake and Output 05/05/17 05/05/17 05/06/17 15:00 23:00 07:00 Intake Total 800 ml 880 ml 860 ml Balance 800 ml 880 ml 860 ml Results/Medications Results 24 hrs Laboratory Tests Test 05/05/17 17:21 05/05/17 20:48 05/06/17 07:53 05/06/17 11:54 Bedside Glucose 89 119 126 123 Medications Current Medications Loratadine (Claritin) 10 mg DAILY PO Last administered on 05/06/17 08:10; Admin Dose 10 MG; Start 05/01/17 at 09:00 Insulin Glargine (Lantus) 22 unit HS SC Last administered on 05/05/17 20:53; Admin Dose 22 UNIT; Start 04/30/17 at 21:00 Miscellaneous Information 1 ea NOTE XX ; Start 04/30/17 at 21:30 Glucose (Glutose) 15 gm Q15M PRN PO DECREASED GLUCOSE; Start 04/30/17 at 21:30 Glucose (Glutose) 22.5 gm Q15M PRN PO DECREASED GLUCOSE; Start 04/30/17 at 21: 30 Dextrose (D50w Syringe) 25 ml Q15M PRN IV DECREASED GLUCOSE; Start 04/30/17 at 21:30 Dextrose (D50w Syringe) 50 ml Q15M PRN IV DECREASED GLUCOSE; Start 04/30/17 at 21:30 Glucagon (Glucagen) 1 mg Q15M PRN IM DECREASED GLUCOSE; Start 04/30/17 at 21:30 Glucose (Glutose) 15 gm Q15M PRN BUCCAL DECREASED GLUCOSE; Start 04/30/17 at 21 :30 Famotidine (Pepcid) 20 mg DAILY PO Last administered on 05/06/17 08:10; Admin Dose 20 MG; Start 05/01/17 at 09:00 Atorvastatin Calcium (Lipitor) 80 mg DAILY@21 PO Last administered on 20:49; Admin Dose 80 MG; Start 04/30/17 at 21:04 Bisacodyl (Dulcolax) 5 mg DAILY PRN PO CONSTIPATION Last administered on 08:48; Admin Dose 5 MG; Start 04/30/17 at 21:00 Carvedilol (Coreg) 6.25 mg BID PO Last administered on 05/03/17 08:48; Admin Dose 6.25 MG; Start 04/30/17 at 21:05; Status Future Hold Clopidogrel Bisulfate (plaVIX) 75 mg DAILY PO Last administered on 05/06/17 08 :10; Admin Dose 75 MG; Start 05/01/17 at 09:00 Diagnostic Test (Pha) (Accu-Chek) 1 ea 02 XX ; Start 05/01/17 at 02:00 Zolpidem Tartrate (Ambien) 5 mg HS PRN PO INSOMNIA; Start 05/01/17 at 22:00 Loperamide HCl (Imodium Cap) 4 mg BID PRN PO Diarrhea Last administered on 05/05 20:49; Admin Dose 4 MG; Start 05/03/17 at 21:30 Acetaminophen (Tylenol Tab) 650 mg Q4H PRN PO PAIN AND OR ELEVATED TEMP; Start 05/04/17 at 20:00 Lisinopril (Zestril) 10 mg DAILY PO Last administered on 05/06/17 08:10; Admin Dose 10 MG; Start 05/06/17 at 09:00 Assessment/Plan Additional Assessment/Plan Rehab- Right lacunar infarct 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 Continue with rehab program Hypertension. Diabetes mellitus type 2. Cardiac- stable ALEJANDRO RODRÍGUEZ MD May 06, 2017 14:01
--- NOTE | 2017-05-06 14:45 | CONS ---
Date/Time of Note Date/Time of Note DATE: 05/06/17 TIME: 14:43 Assessment/Plan Assessment/Plan Chief Complaint/Hosp Course 1. Subacute cerebrovascular accident with Right lacunar infarct -Continue Plavix, antihypertensives and statin -Continue with ARU therapies. 2. Hypertension. Now stable -Beta-blockers has been on hold secondary to bradycardia. Continue Lisinopril 10 3. History of coronary artery disease, status post CABG 2016 -Continue current medical management. 4. Cardiomyopathy with last known EF 35 percent -Continue current medical management. 5. Dyslipidemia. -On statin 6. Type 2Diabetes mellitus. A1C 9.3. -Continue accuchecks,ISS and Lantus along with Metformin. 7. Bradycardia,asymptomatic. Stable. -Cards following.Will monitor. 8.Self care impairment. Continue with PT goals. case discussed with . Problems: Consultation Date/Type/Reason Admit Date/Time Apr 30, 2017 at 20:23 Type of Consultation: cardiology Referring Provider: ALEJANDRO RODRÍGUEZ MD 24 HR Interval Summary Free Text/Dictation He is actively participating in PT Exam/Review of Systems Vital Signs Vitals Vital Signs Date Time Temp Pulse Resp B/P Pulse Ox O2 Delivery O2 Flow Rate FiO2 05/06/17 10:08 63 18 98 21 05/06/17 07:30 98.3 132/77 Intake and Output 05/05/17 05/05/17 05/06/17 15:00 23:00 07:00 Intake Total 800 ml 880 ml 860 ml Balance 800 ml 880 ml 860 ml Exam General: Well developed,adequately built, not in any acute distress . HEENT: Normocephalic, Atraumatic, No laceration or hematoma; Eyes: PEERL, Conjunctiva clear, Anicteric sclera Neck: Supple without any lymphadenopathy, nontender, no JVD, no carotid bruits, trachea midline, no thyromegaly Cardiac: S1, S2 auscultated, regular rhythm and rate, no mumurs or gallop Pulmonary: Normal respiratory effort. Chest clear to auscultation bilaterally, no adventitious breath sounds GI: Abdomen normal to inspection. Soft, non tender, non- distended, no masses, no rebound tenderness or guarding. Bowel sounds active on all four quadrants Genitourinary: Deferred Extremities: Minimal weakness to left upper and lower extremities with numbness.No cyanosis, clubbing, or edema. Pulses [2+] bilaterally. Full ROM on all four extremities. No focal weakness appreciated. Neurologic: Alert to person, place, time, and situation. Affect appropriate, intact sensation. Skin: Clean,dry, and intact. No ecchymosis, no rashes, or lesions Results Results 24 hrs Laboratory Tests Test 05/05/17 17:21 05/05/17 20:48 05/06/17 07:53 05/06/17 11:54 Bedside Glucose 89 119 126 123 Medications Medications Current Medications Loratadine (Claritin) 10 mg DAILY PO Last administered on 05/06/17 08:10; Admin Dose 10 MG; Start 05/01/17 at 09:00 Insulin Glargine (Lantus) 22 unit HS SC Last administered on 05/05/17 20:53; Admin Dose 22 UNIT; Start 04/30/17 at 21:00 Miscellaneous Information 1 ea NOTE XX ; Start 04/30/17 at 21:30 Glucose (Glutose) 15 gm Q15M PRN PO DECREASED GLUCOSE; Start 04/30/17 at 21:30 Glucose (Glutose) 22.5 gm Q15M PRN PO DECREASED GLUCOSE; Start 04/30/17 at 21: 30 Dextrose (D50w Syringe) 25 ml Q15M PRN IV DECREASED GLUCOSE; Start 04/30/17 at 21:30 Dextrose (D50w Syringe) 50 ml Q15M PRN IV DECREASED GLUCOSE; Start 04/30/17 at 21:30 Glucagon (Glucagen) 1 mg Q15M PRN IM DECREASED GLUCOSE; Start 04/30/17 at 21:30 Glucose (Glutose) 15 gm Q15M PRN BUCCAL DECREASED GLUCOSE; Start 04/30/17 at 21 :30 Famotidine (Pepcid) 20 mg DAILY PO Last administered on 05/06/17 08:10; Admin Dose 20 MG; Start 05/01/17 at 09:00 Atorvastatin Calcium (Lipitor) 80 mg DAILY@21 PO Last administered on 20:49; Admin Dose 80 MG; Start 04/30/17 at 21:04 Bisacodyl (Dulcolax) 5 mg DAILY PRN PO CONSTIPATION Last administered on 08:48; Admin Dose 5 MG; Start 04/30/17 at 21:00 Carvedilol (Coreg) 6.25 mg BID PO Last administered on 05/03/17 08:48; Admin Dose 6.25 MG; Start 04/30/17 at 21:05; Status Future Hold Clopidogrel Bisulfate (plaVIX) 75 mg DAILY PO Last administered on 05/06/17 08 :10; Admin Dose 75 MG; Start 05/01/17 at 09:00 Diagnostic Test (Pha) (Accu-Chek) 1 ea 02 XX ; Start 05/01/17 at 02:00 Zolpidem Tartrate (Ambien) 5 mg HS PRN PO INSOMNIA; Start 05/01/17 at 22:00 Loperamide HCl (Imodium Cap) 4 mg BID PRN PO Diarrhea Last administered on 05/05 20:49; Admin Dose 4 MG; Start 05/03/17 at 21:30 Acetaminophen (Tylenol Tab) 650 mg Q4H PRN PO PAIN AND OR ELEVATED TEMP; Start 05/04/17 at 20:00 Lisinopril (Zestril) 10 mg DAILY PO Last administered on 05/06/17 08:10; Admin Dose 10 MG; Start 05/06/17 at 09:00 TAMIKO PRIETO NP May 06, 2017 14:45
[2017-05-06 19:43] VITALS: BP 106/53; RESP 19
[2017-05-06] MEDS: ATORVASTATIN 80 MG TAB PO SCH (20:49)
[2017-05-06] MEDS: INSULIN GLARGINE [LANtus] 3 ML PEN SC SCH (20:51)
--- NOTE | 2017-05-06 21:12 | CONS ---
Date/Time of Note Date/Time of Note DATE: 05/06/17 TIME: 21:09 Assessment/Plan Assessment/Plan Chief Complaint/Hosp Course IMP: IMPRESSION: 1. Bradycardia to 50s, with dizziness. -which have both improved overall/negative trop x 2 2. Hypertension-now improved 3. History of coronary artery disease, status post-coronary artery bypass graft surgery 07/2016. 4. Cardiomyopathy with decreased left ventricular ejection fraction, last only approximately 35 percent by echo on 04/29/2017. 5. Dyslipidemia. 6. Cerebrovascular acute. 7. Diabetes mellitus. 8. Dizziness-improved REcc: -serial ecg's -Follow HR closely -Continue zestril and follow BP closely -Continue statin -PT/OT Problems: Consultation Date/Type/Reason Admit Date/Time Apr 30, 2017 at 20:23 Initial Consult Date 05/03/2017 Type of Consultation: cardiology Reason for Consultation bradycardia Referring Provider: ALEJANDRO RODRÍGUEZ MD Exam/Review of Systems Vital Signs Vitals Vital Signs Date Time Temp Pulse Resp B/P Pulse Ox O2 Delivery O2 Flow Rate FiO2 05/06/17 19:43 60 18 97 21 05/06/17 19:43 98.4 106/53 Intake and Output 05/05/17 05/05/17 05/06/17 15:00 23:00 07:00 Intake Total 800 ml 880 ml 860 ml Balance 800 ml 880 ml 860 ml Exam Review of Systems: CONSTITUTIONAL: No fevers, chills. PULMONARY: No sob CARDIOVASCULAR: No chest pain/palpitations GASTROINTESTINAL: No nausea/vomiting. GENITOURINARY: No hematuria/dysuria. MUSCULOSKELETAL: No myagias/arthalgias. PSYCHIATRIC: The patient denies depression. NEUROLOGIC: No weakness Constitutional: alert Psych: no complaints Head: normocephalic ENMT: mucosa pink and moist Neck: jvd, supple Respiratory: diminished breath sounds Cardiovascular: regular rate and rhythm Gastrointestinal: soft Musculoskeletal: muscle tone Extremities: edema (none) Neurological: other (No focal deficits) Results Results 24 hrs Laboratory Tests Test 05/06/17 07:53 05/06/17 11:54 05/06/17 17:01 05/06/17 20:48 Bedside Glucose 126 123 117 82 Medications Medications Current Medications Loratadine (Claritin) 10 mg DAILY PO Last administered on 05/06/17t 08:10; Admin Dose 10 MG; Start 05/01/17 at 09:00 Insulin Glargine (Lantus) 22 unit HS SC Last administered on 05/06/17 20:51; Admin Dose 22 UNIT; Start 04/30/17 at 21:00 Miscellaneous Information 1 ea NOTE XX ; Start 04/30/17 at 21:30 Glucose (Glutose) 15 gm Q15M PRN PO DECREASED GLUCOSE; Start 04/30/17 at 21:30 Glucose (Glutose) 22.5 gm Q15M PRN PO DECREASED GLUCOSE; Start 04/30/17 at 21: 30 Dextrose (D50w Syringe) 25 ml Q15M PRN IV DECREASED GLUCOSE; Start 04/30/17 at 21:30 Dextrose (D50w Syringe) 50 ml Q15M PRN IV DECREASED GLUCOSE; Start 04/30/17 at 21:30 Glucagon (Glucagen) 1 mg Q15M PRN IM DECREASED GLUCOSE; Start 04/30/17 at 21:30 Glucose (Glutose) 15 gm Q15M PRN BUCCAL DECREASED GLUCOSE; Start 04/30/17 at 21 :30 Famotidine (Pepcid) 20 mg DAILY PO Last administered on 05/06/17 08:10; Admin Dose 20 MG; Start 05/01/17 at 09:00 Atorvastatin Calcium (Lipitor) 80 mg DAILY@21 PO Last administered on 20:49; Admin Dose 80 MG; Start 04/30/17 at 21:04 Bisacodyl (Dulcolax) 5 mg DAILY PRN PO CONSTIPATION Last administered on 08:48; Admin Dose 5 MG; Start 04/30/17 at 21:00 Carvedilol (Coreg) 6.25 mg BID PO Last administered on 05/03/17 08:48; Admin Dose 6.25 MG; Start 04/30/17 at 21:05; Status Future Hold Clopidogrel Bisulfate (plaVIX) 75 mg DAILY PO Last administered on 05/06/17 08 :10; Admin Dose 75 MG; Start 05/01/17 at 09:00 Diagnostic Test (Pha) (Accu-Chek) 1 ea 02 XX ; Start 05/01/17 at 02:00 Zolpidem Tartrate (Ambien) 5 mg HS PRN PO INSOMNIA; Start 05/01/17 at 22:00 Loperamide HCl (Imodium Cap) 4 mg BID PRN PO Diarrhea Last administered on 05/05 20:49; Admin Dose 4 MG; Start 05/03/17 at 21:30 Acetaminophen (Tylenol Tab) 650 mg Q4H PRN PO PAIN AND OR ELEVATED TEMP; Start 05/04/17 at 20:00 Lisinopril (Zestril) 10 mg DAILY PO Last administered on 05/06/17 08:10; Admin Dose 10 MG; Start 05/06/17 at 09:00 BELLA WHITE May 06, 2017 21:12
[2017-05-07] MEDS: LOPERAMIDE 2 MG CAP PO PRN ×2 (00:33→08:27)
[2017-05-07] MEDS: ACCU-CHEK XX SCH (02:00)
[2017-05-07 02:14] VITALS: BP 140/79; RESP 19
[2017-05-07 07:56] VITALS: BP 168/89; RESP 18
[2017-05-07] MEDS: LORATADINE 10 MG TAB PO SCH (08:17)
[2017-05-07] MEDS: metFORMIN 500 MG TAB PO SCH (08:17)
[2017-05-07] MEDS: CLOPIDOGREL 75 MG TAB PO SCH (08:18)
[2017-05-07] MEDS: LISINOPRIL 10 MG TAB PO SCH (08:18)
[2017-05-07] MEDS: FAMOTIDINE 20 MG TAB PO SCH (08:18)
[2017-05-07] MEDS: INSULIN ASPART [NOVOLOG] 3 ML PEN SC SCH (08:20)
[2017-05-07] MEDS: ALBUTEROL 0.5% (NEB) 2.5 MG/0.5 ML AMP INH SCH (09:00)
--- NOTE | 2017-05-07 11:55 | DS ---
Date/Time of Note Date/Time of Note DATE: 05/07/17 TIME: 11:55 Discharge Summary Admission/Discharge Info Admit Date/Time Apr 30, 2017 at 20:23 Discharge Date/Time Discharge Diagnosis Right lacunar infarct 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 Hypertension. Diabetes mellitus type 2. coronary disease, status post-coronary artery bypass graft surgery in 07/2016, four vessels Improved self care and mobility Patient Condition: Good Hospital Course Patient was admitted for comprehensive interdisciplinary acute rehabilitation. Patient made steady functional gains and improved from a mod level to a Supervised level for self care and mobility, including ambulating over 150 feet with the use of a front wheeled walker. Patient was noted to have symptomatic bradycardia which responded to medication adjustment by cardiology. Patient is being discharged home with recommendations for home health PT and OT follow up. DME recommendations: FWW; [facility]; Shower Chair Patient will follow up with PMD upon DC. Home Meds Active Scripts Famotidine* (Pepcid*) 20 Mg Tablet, 20 MG PO DAILY, #20 TAB Prov:WHIT ESPINOSA PA-C 01/01/17 Loratadine* (Claritin*) 10 Mg Tablet, 10 MG PO DAILY, #20 TAB Prov:WHIT ESPINOSA PA-C 01/01/17 Insulin Glargine* (Lantus*) 100 Unit/Ml Soln, 30 UNIT SC QHS for 30 Days Prov:MARCIO CRAIG NP 07/24/16 Insulin Aspart* (Novolog Insulin Pen*) 100 Unit/Ml Soln, 9 UNIT SC WITH MEALS for 30 Days Prov:MARCIO CRAIG NP 07/24/16 Bisacodyl* (Bisacodyl*) 5 Mg Tablet.dr, 5 MG PO DAILY Y for CONSTIPATION for 7 Days Prov:MARCIO CRAIG NP 07/24/16 Albuterol Sulfate (Albuterol Sulfate) 2.5 Mg/0.5 Ml Vial.neb, 2.5 MG HHN Q6HWA RESP THERAPY for 7 Days Prov:MARCIO CRAIG NP 07/24/16 Lisinopril* (Lisinopril*) 5 Mg Tablet, 5 MG PO DAILY for 30 Days, TAB Prov:MARCIO CRAIG NP 07/23/16 Atorvastatin* (Atorvastatin*) 40 Mg Tablet, 40 MG PO HS for 30 Days, TAB Prov:MARCIO CRAIG PLANT FACILITIES TECHNICIAN 07/23/16 Aspirin (Aspirin) 81 Mg Chew, 81 MG PO DAILY for 30 Days, TAB Prov:MARCIO CRAIG PLANT FACILITIES TECHNICIAN 07/23/16 Carvedilol* (Carvedilol*) 6.25 Mg Tablet, 6.25 MG PO BID, #60 TAB 1 Refill Prov:RAJWINDER CHEW 03/13/16 Primary Care Provider Not On Staff Doctor Pending Labs Laboratory Tests Test 05/06/17 17:01 05/06/17 20:48 05/07/17 07:58 Bedside Glucose 117mg/dL (70-220) 82mg/dL (70-220) 101mg/dL (70-220) ALEJANDRO RODRÍGUEZ MD May 07, 2017 11:55 117mg/dL (70-220) 82mg/dL (70-220) 101mg/dL (70-220) ALEJANDRO RODRÍGUEZ MD May 07, 2017 11:55
== END 2017-05-07 11:50 | disposition home health service (06) | DRG 57 ==
LOC: VRC 20:23
PROVIDERS: ADMIT Physical Medicine & Rehabilitation; ATTEND Internal Medicine Pulmonary Disease
DX: I69.354 Hemiplegia and hemiparesis following cerebral infarction affecting left non-dominant side (principal); I42.9 Cardiomyopathy, unspecified; F01.50 Vascular dementia, unspecified severity, without behavioral disturbance, psychotic disturbance, mood disturbance, and anxiety; I10 Essential (primary) hypertension; E11.9 Type 2 diabetes mellitus without complications; Z74.09 Other reduced mobility; E78.5 Hyperlipidemia, unspecified; Z79.02 Long term (current) use of antithrombotics/antiplatelets; Z79.4 Long term (current) use of insulin; Z95.1 Presence of aortocoronary bypass graft; R00.1 Bradycardia, unspecified; R42 Dizziness and giddiness; Z87.891 Personal history of nicotine dependence; F06.31 Mood disorder due to known physiological condition with depressive features
CPT/HCPCS: 80053; 80061; 82962; 84443; 84484; 85025; 87081; 92507; 92523; 92526; 92610; 93005; 94640; 94664; 97110; 97112; 97116; 97150; 97162; 97167; 97530; 97535; J1815

== ENCOUNTER 2017-08-10 08:31 | Emergency (ER) | payer MEDICARE, OTHER ==
[~2017-08-10] VITALS: Wt 80.0 kg
[2017-08-10 08:33] VITALS: Wt 80.0 kg
[2017-08-10] MEDS ORDERED: ASPIRIN 325 MG TAB PO STA (09:07)
[2017-08-10] MEDS ORDERED: ALBUTEROL 0.083% (NEB) 2.5 MG/3 ML AMP NEB STA (09:09)
[2017-08-10] MEDS ORDERED: LISI10TA2 PO (09:49)
[2017-08-10] MEDS ORDERED: ATOR80TA75 PO (09:50)
[2017-08-10] MEDS ORDERED: CLOP75TA27 PO (09:50)
--- NOTE | 2017-08-10 09:59 | RADRPT ---
PROCEDURE: Chest x-ray CLINICAL INDICATION: Chest pain TECHNIQUE: Chest single view COMPARISON: 04/28/2017 FINDINGS: There post CABG changes. Stable mild cardiomegaly and atherosclerotic aortic calcification is seen. Pulmonary vessels are normal in caliber. There is linear atelectasis in the left mid lung field. [place] gs otherwise clear. Costophrenic angles are sharp. IMPRESSION: No acute cardiopulmonary disease. Stable cardiomegaly and atherosclerotic aortic calcification. Minimal left lung atelectasis Status post CABG RPTAT: HH .Alistair Molina MD, MD Date Time Electronically viewed and signed by .Alistair Molina MD, on 08/10/2017 09:58 .W/
[2017-08-10 10:11] LABS: BASOPHIL # 0.1 10^3/ul (0.0-0.1); BASOPHILS % 0.5 % (0.0-2.0); EOSINOPHILS # 0.9 10^3/ul (0.0-0.5); EOSINOPHILS % 7.7 % (0.0-7.0); HEMATOCRIT 39.2 % (42.0-52.0); HEMOGLOBIN 13.3 g/dl (14.0-18.0); LYMPHOCYTES # 2.3 10^3/ul (0.8-2.9); MEAN CORPUSCULAR HEMOGLOBIN 28.5 pg (29.0-33.0); MEAN CORPUSCULAR HGB CONC 33.9 g/dl (32.0-37.0); MEAN CORPUSCULAR VOLUME 84.1 fl (82.0-101.0); MEAN PLATELET VOLUME 10.1 fl (7.4-10.4); MONOCYTE # 0.8 10^3/ul (0.3-0.9); MONOCYTES % 6.9 % (0.0-11.0); NEUTROPHIL # 7.4 10^3/ul (1.6-7.5); NEUTROPHILS % 64.3 % (39.0-77.0); PLATELET COUNT 294 10^3/UL (140-415); RED BLOOD COUNT 4.66 10^6/ul (4.70-6.10); WHITE BLOOD COUNT 11.4 10^3/ul (4.8-10.8)
[2017-08-10 10:30] LABS: INR 0.94; PROTIME 12.7 Sec (11.9-14.9)
[2017-08-10 10:31] LABS: PARTIAL THROMBOPLASTIN TIME 30.2 Sec (25.0-35.0)
[2017-08-10 10:33] LABS: ALANINE AMINOTRANSFERASE 36 IU/L (13-69); ALBUMIN 3.6 g/dl (3.3-4.9); ALBUMIN/GLOBULIN RATIO 1.02; ALKALINE PHOSPHATASE 71 IU/L (42-121); ANION GAP 12 (8-16); ASPARTATE AMINO TRANSFERASE 19 IU/L (15-46); BILIRUBIN,INDIRECT 0.8 mg/dl (0-1.1); BILIRUBIN,TOTAL 0.8 mg/dl (0.2-1.3); BLOOD UREA NITROGEN 17 mg/dl (7-20); CALCIUM 9.2 mg/dl (8.4-10.2); CARBON DIOXIDE 31 mmol/L (21-31); CHLORIDE 106 mmol/L (97-110); CREATININE 0.77 mg/dl (0.61-1.24); GLUCOSE 128 mg/dl (70-220); POTASSIUM 4.5 mmol/L (3.5-5.1); SODIUM 144 mmol/L (135-144); TOTAL PROTEIN 7.1 g/dl (6.1-8.1)
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
[2017-08-10 10:45] LABS: B-TYPE NATRIURETIC PEPTIDE 2120 PG/ML (0-125)
[2017-08-10 10:47] LABS: TROPONIN-I < 0.012 ng/ml (0.00-0.12)
[2017-08-10 12:24] VITALS: BP 187/82; PULSE 61; RESP 18; TEMP 97.7
== END 2017-08-10 12:27 | disposition home or self-care (01) ==
LOC: E/R 08:31
DX: R05 Cough (principal); T46.4X5A Adverse effect of angiotensin-converting-enzyme inhibitors, initial encounter; I10 Essential (primary) hypertension; J44.9 Chronic obstructive pulmonary disease, unspecified; I50.9 Heart failure, unspecified; E11.9 Type 2 diabetes mellitus without complications; I25.10 Atherosclerotic heart disease of native coronary artery without angina pectoris; Z95.1 Presence of aortocoronary bypass graft; Z79.82 Long term (current) use of aspirin; Z79.01 Long term (current) use of anticoagulants; Z79.4 Long term (current) use of insulin
CPT/HCPCS: 36415; 71010; 80053; 83880; 84484; 85025; 85610; 85730; 93005; 94664

== ENCOUNTER 2017-12-19 15:57 | Emergency (ER) | END 2017-12-20 00:08 | disposition home or self-care (01) ==

== ENCOUNTER 2018-01-01 12:47 | Inpatient (IN) | END 2018-01-22 17:00 | DRG 240 ==

== ENCOUNTER 2018-01-31 18:42 | Inpatient (IN) | END 2018-02-11 18:50 | DRG 239 ==